=== PATIENT | female | born 1955 | race Asian ===

== ENCOUNTER 2023-03-06 12:24 | Inpatient (IN) | payer BC, MEDICARE ==
[~2023-03-06 12:24] MED LIST: Iopamidol-370 76% 500 ML MDV (1 ML CHARGE) ONE
[2023-03-06 15:11] LABS: #Monocytes 1.1 thou/uL (0.11-0.59); %Basophils 0.2 % (0.0-1.0); %Eosinophils 0.1 % (0.0-10.0); %Lymphocytes 5.5 % (21.0-51.0); %Monocytes 6.4 % (0.0-10.0); %Neutrophils 86.1 % (42.0-75.0); Hematocrit 39.4 % (36.0-47.0); Hemoglobin 13.8 g/dL (12.0-16.0); Mean Corpuscular Hemoglobin 32.4 pg (27.0-31.0); Mean Corpuscular Volume 92.5 fl (78.0-98.0); Mean Platelet Volume 9.4 fL (7.4-10.4); Platelet Count 222 10x3/uL (130-400); RBC Distribution Width 15.7 % (11.5-14.5); Red Blood Cell (RBC) Count 4.26 mill/uL (4.20-5.40); White Blood Cell (WBC) Count 17.4 10x3/uL (4.8-10.8)
[2023-03-06 15:19] LABS: Actual Bicarbonate (HCO3v) 20.3 mEq/L (22-28); Analyzer IN Cardio ER; Base Excess -1.9 mEq/L (-2.0 to +3.0); Calcium, Ionized (venous) 1.04 mmol/L (1.16-1.32); Chloride (VBG) 87 mmol/L (98-106); Hematocrit-VBG 49 % (36.0-47.0); Hemoglobin (Hb) 16.8 g/dL (11.7-16.1); pH (venous) 7.463 (7.32-7.43)
[2023-03-06 15:39] LABS: ALT (SGPT) 319 U/L (8-55); AST (SGOT) 158 U/L (5-34); Albumin 3.5 g/dL (3.4-4.8); Alkaline Phosphatase 186 U/L (40-110); Anion Gap 15 mmol/L (10-20); BUN (Urea Nitrogen) 41 mg/dL (9.8-20.1); Bilirubin, Total 1.7 mg/dL (0.2-1.2); Calc. Creatinine Clearance 0 mL/min (70-130); Calcium 8.6 mg/dL (7.8-10.44); Carbon Dioxide 17 mmol/L (23-31); Chloride 88 mmol/L (98-107); Estimated GFR 84; Globulin 3.6 g/dL (2.4-3.5); Glucose 122 mg/dL (80-115); Lipase 28 U/L (8-78); Magnesium 2.5 mg/dL (1.6-2.6); Protein, Total 7.1 g/dL (5.8-8.1)
[2023-03-06 15:41] LABS: Troponin I Less than 0.010 ng/mL (< 0.028)
[2023-03-06 15:46] LABS: Potassium 6.4 mmol/L (3.5-5.1); Sodium 114 mmol/L (136-145)
[2023-03-06 16:34] LABS: SARS-CoV-2 NAA Rapid Test Not Detected (NotDetected)
[2023-03-06] MEDS ORDERED: Dextrose 10% in Water 250 ML ONE (16:43)
[2023-03-06] MEDS ORDERED: CALCIUM GLUC 1 GM (50 ML) BAG ONE (16:43)
[2023-03-06] MEDS ORDERED: Insulin Regular 300 UNITS/3 ML VIAL ONE (16:44)
[2023-03-06] MEDS ORDERED: EPINEPHrine 1 MG/ML VIAL ONE (18:31)
[2023-03-06] MEDS ORDERED: Bupivacaine PF 0.5% 30 ML VIAL ONE (18:32)
[2023-03-06] MEDS ORDERED: Etomidate 40 MG (20 mL) VIAL ONE (18:50)
[2023-03-06] MEDS ORDERED: CEFAZOLIN 1 GM VIAL ONE (18:51)
[2023-03-06] MEDS ORDERED: Lidocaine 2% PF 5 ML VIAL ONE (18:51)
[2023-03-06] MEDS ORDERED: fentaNYL 50 mcg/mL 1 mL Vial ONE (18:51)
[2023-03-06] MEDS ORDERED: Ondansetron PF 4 MG/2 ML Vial ONE ×2 (19:00→19:17)
[2023-03-06] MEDS ORDERED: Rocuronium Bromide 10 MG/ML (10ML VIAL) ONE (19:00)
[2023-03-06] MEDS ORDERED: Dexamethasone 4 mg/ml Vial ONE (19:17)
[2023-03-06] MEDS ORDERED: PHENYLEPHRINE-NS 100 MCG/ML 10 ML SYRINGE ONE (19:17)
[2023-03-06] MEDS ORDERED: SUGAMMADEX SODIUM 200 MG/2 ML VIAL ONE (19:19)
[2023-03-06] MEDS ORDERED: Glycopyrrolate 0.2 MG/ML 5 ML SYRINGE ONE (19:19)
[2023-03-06] MEDS ORDERED: NEOSTIGMINE 3 MG/3 ML SYR 3 MG/3 ML SYRINGE ONE (19:19)
[2023-03-06] MEDS ORDERED: Promethazine HCl 25 MG/ML VIAL IM PRN (20:11)
[2023-03-06] MEDS ORDERED: Guaifenesin DM 100-10/5 ML UDCUP PO PRN (20:11)
[2023-03-06] MEDS ORDERED: Morphine 2 MG/ML VIAL SLOW IVP PRN (20:11)
[2023-03-06] MEDS ORDERED: Ipratropium/Albuterol 3 ML NEB NEB PRN (20:11)
[2023-03-06] MEDS ORDERED: Ondansetron PF 4 MG/2 ML Vial IVP PRN (20:11)
[2023-03-06] MEDS ORDERED: Mag-Al 1200 mg/1200 mg/30 ML UDCUP PO PRN (20:11)
[2023-03-06 20:24] LABS: RBC Count-Automated (BF) Greater than 890000 /cu.mm; WBC/Nucleated-Auto (BF) 690 /cu.mm
[2023-03-06 20:28] LABS: BF Color Red; Body Fluid Source Pericardial Fluid; Clarity Cloudy/Turbid (Clear); Fluid, Protein 6.5 g/dL (Not Available); Tube # EDTA
[2023-03-06] MEDS: Sodium Chloride 0.9% 1,000 ML IV SCH (20:31)
[2023-03-06 20:36] LABS: BF Segmented Neutrophils 70 %; Cell Count Non Hematic 5 %; Lymphocytes 25 %
[2023-03-06] MEDS: Cefepime 2 GM in Sodium Chloride 0.9% 100 ML IVPB SCH (21:02)
[2023-03-06] MEDS: Vancomycin (BATCH) 1.25 GM in Premix 1 BAG IVPB SCH (22:07)
[2023-03-06] MEDS: fentaNYL 50 mcg/mL 1 mL Vial SLOW IVP PRN (22:08)
[2023-03-06 22:11] LABS: ALT (SGPT) 259 U/L (8-55); AST (SGOT) 139 U/L (5-34); Alkaline Phosphatase 153 U/L (40-110); Anion Gap 13 mmol/L (10-20); BUN (Urea Nitrogen) 35 mg/dL (9.8-20.1); Bilirubin, Total 1.9 mg/dL (0.2-1.2); Calc. Creatinine Clearance 66 mL/min (70-130); Calcium 7.7 mg/dL (7.8-10.44); Carbon Dioxide 17 mmol/L (23-31); Chloride 91 mmol/L (98-107); Estimated GFR 86; Glucose 135 mg/dL (80-115); Magnesium 2.2 mg/dL (1.6-2.6); Potassium 5.8 mmol/L (3.5-5.1)
[2023-03-06 22:14] LABS: Critical Call Chemistry NUR.DLH2@2214; Sodium 115 mmol/L (136-145)
[2023-03-06 23:39] LABS: #Neutrophils 17.2 thou/uL (1.40-6.50); %Basophils 0.1 % (0.0-1.0); %Lymphocytes 2.6 % (21.0-51.0); %Monocytes 5.4 % (0.0-10.0); %Neutrophils 89.8 % (42.0-75.0); Hematocrit 38.5 % (36.0-47.0); Hemoglobin 13.1 g/dL (12.0-16.0); Mean Corpuscular Hemoglobin 33.2 pg (27.0-31.0); Mean Platelet Volume 9.7 fL (7.4-10.4); Platelet Count 201 10x3/uL (130-400); RBC Distribution Width 15.5 % (11.5-14.5); Red Blood Cell (RBC) Count 3.95 mill/uL (4.20-5.40); White Blood Cell (WBC) Count 19.2 10x3/uL (4.8-10.8)
[2023-03-06 23:43] LABS: Mean Corpuscular Volume 97.5 fl (78.0-98.0)
[2023-03-06 23:57] LABS: Lactic Acid 2.6 mmol/L (0.5-2.2)
[2023-03-07] MEDS: Sodium Chloride 3% 100 ML IVPB SCH (00:23)
[2023-03-07] MEDS: Sodium Bicarb 50 mEq/50 ML VIAL IVP SCH ×3 (00:23→23:37)
[2023-03-07 00:34] LABS: Phosphorus 5.1 mg/dL (2.3-4.7)
[2023-03-07 00:37] LABS: Uric Acid 5.9 mg/dL (2.6-6.0)
[2023-03-07] MEDS: Famotidine 20 MG TAB PO SCH (00:40)
[2023-03-07] MEDS: Acetaminophen 325 MG TAB PO SCH (00:40)
[2023-03-07] MEDS: LOKELMA 10 GM PACKET PO SCH ×4 (00:41→18:48)
[2023-03-07] MEDS: Sodium Chloride 3% 500 ML IVPB SCH (00:42)
[2023-03-07] MEDS: Adenosine 6 mg (2 mL) VIAL IVP SCH ×2 (04:01→04:41)
[2023-03-07 04:09] LABS: #Eosinphils 0.1 thou/uL (0.0-0.7); #Monocytes 1.4 thou/uL (0.11-0.59); #Neutrophils 19.1 thou/uL (1.40-6.50); %Basophils 0.2 % (0.0-1.0); %Eosinophils 0.2 % (0.0-10.0); %Lymphocytes 2.8 % (21.0-51.0); %Monocytes 6.4 % (0.0-10.0); %Neutrophils 88.9 % (42.0-75.0); Hematocrit 36.9 % (36.0-47.0); Mean Corpuscular HGB CONC 35.2 g/dL (32.0-36.0); Mean Platelet Volume 8.7 fL (7.4-10.4); Platelet Count 162 10x3/uL (130-400); RBC Distribution Width 15.3 % (11.5-14.5); Red Blood Cell (RBC) Count 3.94 mill/uL (4.20-5.40); White Blood Cell (WBC) Count 21.4 10x3/uL (4.8-10.8)
[2023-03-07 04:15] LABS: Mean Corpuscular Volume 93.7 fl (78.0-98.0)
[2023-03-07 04:22] LABS: ALT (SGPT) 249 U/L (8-55); AST (SGOT) 133 U/L (5-34); Alkaline Phosphatase 140 U/L (40-110); Anion Gap 14 mmol/L (10-20); BUN (Urea Nitrogen) 33 mg/dL (9.8-20.1); Calc. Creatinine Clearance 66 mL/min (70-130); Calcium 7.8 mg/dL (7.8-10.44); Carbon Dioxide 22 mmol/L (23-31); Chloride 93 mmol/L (98-107); Estimated GFR 86; Globulin 2.7 g/dL (2.4-3.5); Glucose 99 mg/dL (80-115); Potassium 5.7 mmol/L (3.5-5.1); Protein, Total 5.7 g/dL (5.8-8.1); Sodium 123 mmol/L (136-145)
[2023-03-07] MEDS ORDERED: LOKELMA 10 GM PACKET PO SCH (04:45)
[2023-03-07] MEDS ORDERED: Amiodarone 150 MG, Admixture Fee 1 EACH in Dextrose 5% in Water 100 ML IVPB SCH (05:30)
[2023-03-07] MEDS: Amiodarone 150 MG/3 ML VIAL IVP SCH (05:35)
[2023-03-07] MEDS: Magnesium 5 GM/10 ML VIAL IV SCH (05:37)
[2023-03-07 06:06] LABS: Magnesium 2.1 mg/dL (1.6-2.6)
[2023-03-07 06:12] LABS: Troponin I 0.139 ng/mL (< 0.028)
[2023-03-07] MEDS: Adenosine 6 mg (2 mL) VIAL ONE ×2 (06:13)
[2023-03-07] MEDS: Dextrose 50% Abboject 50 ML SYRINGE SLOW IVP PRN (06:35)
[2023-03-07] MEDS: Insulin Regular 300 UNITS/3 ML VIAL IVP SCH ×2 (06:35→23:41)
[2023-03-07 07:09] LABS: Creatinine, Urine Less than 20.00 mg/dL (47-110); Sodium, Urine 32 mmol/L (Not Available)
[2023-03-07] MEDS: Magnesium 2 GM/50 ML(in water) 2 GM in Premix 1 BAG IVPB SCH (07:30)
[2023-03-07] MEDS: Amiodarone 450 MG in Dextrose 5% in Water 250 ML IVPB SCH (07:37)
[2023-03-07] MEDS: Calcium Gluc 4.6 MEQ/10 ML (100 MG/ML) SLOW IVP SCH (07:38)
[2023-03-07] MEDS: Vancomycin HCl 750 MG in Sodium Chloride 0.9% 250 ML 250 ML IVPB SCH (08:23)
[2023-03-07] MEDS ORDERED: Enoxaparin 40 MG (0.4 mL) SYRINGE SC SCH (09:00)
[2023-03-07] MEDS: Albuterol 2.5 MG (3 mL) NEB ONE (10:06)
[2023-03-07 11:28] LABS: Anion Gap 13 mmol/L (10-20); BUN (Urea Nitrogen) 31 mg/dL (9.8-20.1); Calc. Creatinine Clearance 70 mL/min (70-130); Calcium 7.7 mg/dL (7.8-10.44); Carbon Dioxide 17 mmol/L (23-31); Chloride 97 mmol/L (98-107); Estimated GFR 90; Glucose 108 mg/dL (80-115); Potassium 5.6 mmol/L (3.5-5.1); Sodium 121 mmol/L (136-145)
[2023-03-07 11:45] LABS: Troponin I 0.136 ng/mL (< 0.028)
[2023-03-07] MEDS: Albumin 25% 25 GM (100 mL) BOT IVPB SCH (12:19)
[2023-03-07] MEDS ORDERED: Sodium Chloride 0.9% 250 ML IV SCH (13:00)
[2023-03-07 13:57] LABS: Potassium (VBG) 6.03 mmol/L (3.70-5.30); Sodium 117 mmol/L (133-146)
[2023-03-07] MEDS: Sodium Chloride 0.9% 1,000 ML IV SCH (14:30)
[2023-03-07 18:23] LABS: Anion Gap 20 mmol/L (10-20); BUN (Urea Nitrogen) 35 mg/dL (9.8-20.1); Calc. Creatinine Clearance 60 mL/min (70-130); Carbon Dioxide 14 mmol/L (23-31); Chloride 97 mmol/L (98-107); Estimated GFR 75; Glucose 68 mg/dL (80-115); Potassium 5.9 mmol/L (3.5-5.1); Sodium 125 mmol/L (136-145)
[2023-03-07 20:58] LABS: INR-International Normal Ratio 2.5; Prothrombin Time 28.1 sec (12.0-14.7)
[2023-03-07 20:59] LABS: PTT 25.2 sec (22.9-36.1)
[2023-03-07 21:23] LABS: ALT (SGPT) 757 U/L (8-55); AST (SGOT) 1037 U/L (5-34); Albumin 3.8 g/dL (3.4-4.8); Alkaline Phosphatase 178 U/L (40-110); Anion Gap 22 mmol/L (10-20); BUN (Urea Nitrogen) 36 mg/dL (9.8-20.1); Bilirubin, Total 5.4 mg/dL (0.2-1.2); Calc. Creatinine Clearance 45 mL/min (70-130); Calcium 8.2 mg/dL (7.8-10.44); Carbon Dioxide 14 mmol/L (23-31); Chloride 96 mmol/L (98-107); Critical Call Chem-Lactate NUR.MDS1@2122; Critical Call Chemistry NUR.MDS1@2123; Estimated GFR 53; Globulin 2.8 g/dL (2.4-3.5); Glucose 64 mg/dL (80-115); Lactic Acid 7.2 mmol/L (0.5-2.2); Potassium 6.1 mmol/L (3.5-5.1); Protein, Total 6.6 g/dL (5.8-8.1); Sodium 126 mmol/L (136-145)
[2023-03-07] MEDS ORDERED: NOREPINEPHRINE 8 MG/250 ML-D5W 250 ML IVPB SCH (22:00)
[2023-03-07] MEDS: Sodium Bicarbonate 150 MEQ in Dextrose 5% in Water 1,000 ML IV SCH (22:00)
[2023-03-07] MEDS: Dextrose 50% Abboject 50 ML SYRINGE SLOW IVP SCH (23:41)
[2023-03-08 01:51] LABS: Hep C Index 0.09 S/CO (0-0.79)
[2023-03-08 02:50] LABS: HBSAB Concentration Less than 8.00 mIU/mL; Hep B Core Total Ab Reactive (NonReactive); Hep B Surf AB Non-Reactive (NonReactive); Hep C IgG Ab Non-Reactive S/CO (NonReactive)
[2023-03-08 02:57] LABS: HBSAg Index 48.19 S/CO (0-0.99)
[2023-03-08 02:58] LABS: Hep B Surf Ag Reflx Confirmation S/CO (NonReactive)
[2023-03-08 02:59] LABS: Hep B Core Total Index 7.51 S/CO (0-0.79)
[2023-03-08] MEDS: Polyethylene Glycol 3350 17 GM Packet PO SCH ×2 (03:34→09:16)
[2023-03-08] MEDS: Cefepime 1 GM in Sodium Chloride 0.9% 100 ML IVPB SCH ×2 (04:05→07:51)
[2023-03-08] MEDS: Vancomycin HCl 750 MG in Sodium Chloride 0.9% 250 ML 250 ML IVPB SCH (05:06)
[2023-03-08 06:00] LABS: #Monocytes 1.1 thou/uL (0.11-0.59); #Neutrophils 19.4 thou/uL (1.40-6.50); %Basophils 0.1 % (0.0-1.0); %Lymphocytes 2.5 % (21.0-51.0); %Monocytes 4.9 % (0.0-10.0); %Neutrophils 90.7 % (42.0-75.0); Hematocrit 32.4 % (36.0-47.0); Hemoglobin 11.1 g/dL (12.0-16.0); Mean Corpuscular HGB CONC 34.3 g/dL (32.0-36.0); Mean Corpuscular Hemoglobin 33.5 pg (27.0-31.0); Mean Corpuscular Volume 97.9 fl (78.0-98.0); Mean Platelet Volume 8.9 fL (7.4-10.4); Platelet Count 95 10x3/uL (130-400); Red Blood Cell (RBC) Count 3.31 mill/uL (4.20-5.40); White Blood Cell (WBC) Count 21.4 10x3/uL (4.8-10.8)
[2023-03-08 06:15] LABS: Lactic Acid 2.6 mmol/L (0.5-2.2)
[2023-03-08 06:24] LABS: ALT (SGPT) 1603 U/L (8-55); AST (SGOT) 3210 U/L (5-34); Albumin 2.8 g/dL (3.4-4.8); Alkaline Phosphatase 142 U/L (40-110); Anion Gap 12 mmol/L (10-20); BUN (Urea Nitrogen) 25 mg/dL (9.8-20.1); Bilirubin, Total 3.4 mg/dL (0.2-1.2); Calc. Creatinine Clearance 57 mL/min (70-130); Calcium 7.1 mg/dL (7.8-10.44); Carbon Dioxide 31 mmol/L (23-31); Chloride 90 mmol/L (98-107); Estimated GFR 69; Globulin 2.1 g/dL (2.4-3.5); Glucose 172 mg/dL (80-115); Magnesium 2.2 mg/dL (1.6-2.6); Potassium 4.3 mmol/L (3.5-5.1); Protein, Total 4.9 g/dL (5.8-8.1); Sodium 129 mmol/L (136-145)
[2023-03-08 08:10] LABS: Prothrombin Time 32.1 sec (12.0-14.7)
[2023-03-08 08:11] LABS: PTT 41.2 sec (22.9-36.1)
[2023-03-08] MEDS: dilTIAZem 125 MG in Sodium Chloride 0.9% 100 ML IVPB SCH (09:16)
[2023-03-08 10:21] LABS: HBCM Index 0.06 S/CO (0-0.79); Hepatitis B Core IgM Abs Non-Reactive S/CO (NonReactive)
[2023-03-08] MEDS: fentaNYL 50 mcg/mL 1 mL Vial SLOW IVP PRN (14:58)
[2023-03-09 04:47] LABS: #Monocytes 0.8 thou/uL (0.11-0.59); #Neutrophils 19.5 thou/uL (1.40-6.50); %Basophils 0.1 % (0.0-1.0); %Lymphocytes 3.5 % (21.0-51.0); %Monocytes 3.5 % (0.0-10.0); %Neutrophils 91.5 % (42.0-75.0); Hematocrit 34.7 % (36.0-47.0); Hemoglobin 11.5 g/dL (12.0-16.0); Mean Corpuscular HGB CONC 33.1 g/dL (32.0-36.0); Mean Corpuscular Hemoglobin 32.4 pg (27.0-31.0); Mean Corpuscular Volume 97.7 fl (78.0-98.0); Mean Platelet Volume 9.4 fL (7.4-10.4); RBC Distribution Width 16.1 % (11.5-14.5); Red Blood Cell (RBC) Count 3.55 mill/uL (4.20-5.40); White Blood Cell (WBC) Count 21.3 10x3/uL (4.8-10.8)
[2023-03-09 05:07] LABS: Platelet Count 81 10x3/uL (130-400)
[2023-03-09 05:38] LABS: PTT 37.3 sec (22.9-36.1)
[2023-03-09 05:41] LABS: ALT (SGPT) 994 U/L (8-55); AST (SGOT) 843 U/L (5-34); Albumin 2.8 g/dL (3.4-4.8); Alkaline Phosphatase 141 U/L (40-110); Anion Gap 12 mmol/L (10-20); BUN (Urea Nitrogen) 38 mg/dL (9.8-20.1); Bilirubin, Total 2.6 mg/dL (0.2-1.2); Calc. Creatinine Clearance 50 mL/min (70-130); Calcium 7.4 mg/dL (7.8-10.44); Carbon Dioxide 31 mmol/L (23-31); Chloride 91 mmol/L (98-107); Estimated GFR 60; Fibrinogen 144 mg/dL (253-463); Globulin 2.2 g/dL (2.4-3.5); Glucose 134 mg/dL (80-115); Potassium 3.9 mmol/L (3.5-5.1); Sodium 130 mmol/L (136-145)
[2023-03-09] MEDS: Morphine 2 MG/ML VIAL SLOW IVP SCH (06:41)
[2023-03-09 06:43] LABS: D-Dimer Test Greater than 20.00 *mcg/mL (0.27-0.43)
[2023-03-09 06:46] LABS: Platelet Count 81 10x3/uL (130-400)
[2023-03-09] MEDS: Famotidine 20 MG TAB PO SCH (10:51)
[2023-03-09] MEDS ORDERED: Vancomycin HCl 750 MG in Sodium Chloride 0.9% 250 ML 250 ML IVPB SCH (17:15)
[2023-03-09 17:36] LABS: Hep B Surface AG-Rflx Sendout Confirm. indicated (Negative)
[2023-03-09 17:47] LABS: Vancomycin, Trough 20.3 ug/mL
[2023-03-09] MEDS: Vancomycin HCl 500 MG in Sodium Chloride 0.9% 100 ML IVPB SCH (20:36)
[2023-03-10 08:31] LABS: ALT (SGPT) 614 U/L (8-55); AST (SGOT) 235 U/L (5-34); Albumin 2.5 g/dL (3.4-4.8); Alkaline Phosphatase 142 U/L (40-110); Anion Gap 14 mmol/L (10-20); BUN (Urea Nitrogen) 36 mg/dL (9.8-20.1); Bilirubin, Total 1.8 mg/dL (0.2-1.2); Calc. Creatinine Clearance 62 mL/min (70-130); Calcium 7.2 mg/dL (7.8-10.44); Carbon Dioxide 24 mmol/L (23-31); Chloride 96 mmol/L (98-107); Estimated GFR 74; Globulin 2.8 g/dL (2.4-3.5); Glucose 93 mg/dL (80-115); Potassium 5.8 mmol/L (3.5-5.1); Protein, Total 5.3 g/dL (5.8-8.1); Sodium 128 mmol/L (136-145)
[2023-03-10 09:14] LABS: #Eosinphils 0.1 thou/uL (0.0-0.7); #Monocytes 0.8 thou/uL (0.11-0.59); #Neutrophils 17.1 thou/uL (1.40-6.50); %Basophils 0.2 % (0.0-1.0); %Eosinophils 0.4 % (0.0-10.0); %Lymphocytes 3.3 % (21.0-51.0); %Monocytes 4.5 % (0.0-10.0); %Neutrophils 90.9 % (42.0-75.0); Hematocrit 38.9 % (36.0-47.0); Hemoglobin 12.8 g/dL (12.0-16.0); Mean Corpuscular HGB CONC 32.9 g/dL (32.0-36.0); Mean Corpuscular Hemoglobin 32.7 pg (27.0-31.0); Mean Corpuscular Volume 99.2 fl (78.0-98.0); Mean Platelet Volume 9.4 fL (7.4-10.4); RBC Distribution Width 16.6 % (11.5-14.5); Red Blood Cell (RBC) Count 3.92 mill/uL (4.20-5.40); White Blood Cell (WBC) Count 18.8 10x3/uL (4.8-10.8)
[2023-03-10 09:18] LABS: Platelet Count 76 10x3/uL (130-400)
[2023-03-10] MEDS: dilTIAZem 30 MG TAB PO SCH ×3 (12:23→12:26)
[2023-03-10] MEDS: FLU VACC QS2023(65UP)/MF59C/PF 60 MCG/0.5 ML SYRINGE IM ONE (12:25)
[2023-03-10] MEDS: Activase 2 MG VIAL CATH SCH (23:38)
[2023-03-10] MEDS: Sterile Water 10 ML VIAL IVP SCH (23:42)
[2023-03-11 08:24] LABS: #Monocytes 0.9 thou/uL (0.11-0.59); #Neutrophils 17.5 thou/uL (1.40-6.50); %Basophils 0.2 % (0.0-1.0); %Eosinophils 0.1 % (0.0-10.0); %Lymphocytes 2.7 % (21.0-51.0); %Monocytes 4.7 % (0.0-10.0); %Neutrophils 91.6 % (42.0-75.0); Hematocrit 42.7 % (36.0-47.0); Hemoglobin 13.7 g/dL (12.0-16.0); Mean Corpuscular HGB CONC 32.1 g/dL (32.0-36.0); Mean Corpuscular Hemoglobin 32.9 pg (27.0-31.0); Mean Platelet Volume 12.1 fL (7.4-10.4); RBC Distribution Width 17.1 % (11.5-14.5); Red Blood Cell (RBC) Count 4.16 mill/uL (4.20-5.40); White Blood Cell (WBC) Count 19.1 10x3/uL (4.8-10.8)
[2023-03-11 08:26] LABS: Platelet Count 61 10x3/uL (130-400)
[2023-03-11 08:27] LABS: Mean Corpuscular Volume 102.6 fl (78.0-98.0)
[2023-03-11] MEDS: [UNRECOGNIZED DRUG - OTHER] PO SCH (08:33)
[2023-03-11 09:25] LABS: ALT (SGPT) 438 U/L (8-55); AST (SGOT) 106 U/L (5-34); Albumin 2.5 g/dL (3.4-4.8); Alkaline Phosphatase 148 U/L (40-110); Anion Gap 15 mmol/L (10-20); BUN (Urea Nitrogen) 15 mg/dL (9.8-20.1); Bilirubin, Total 1.9 mg/dL (0.2-1.2); Calc. Creatinine Clearance 81 mL/min (70-130); Calcium 7.5 mg/dL (7.8-10.44); Carbon Dioxide 22 mmol/L (23-31); Chloride 101 mmol/L (98-107); Estimated GFR 97; Globulin 3.2 g/dL (2.4-3.5); Glucose 84 mg/dL (80-115); Potassium 4.8 mmol/L (3.5-5.1); Protein, Total 5.7 g/dL (5.8-8.1); Sodium 133 mmol/L (136-145)
[2023-03-12 05:17] LABS: #Monocytes 1.1 thou/uL (0.11-0.59); #Neutrophils 15.4 thou/uL (1.40-6.50); %Basophils 0.1 % (0.0-1.0); %Eosinophils 0.2 % (0.0-10.0); %Lymphocytes 3.8 % (21.0-51.0); %Monocytes 6.4 % (0.0-10.0); %Neutrophils 88.8 % (42.0-75.0); Hematocrit 39.9 % (36.0-47.0); Hemoglobin 13.1 g/dL (12.0-16.0); Mean Corpuscular HGB CONC 32.8 g/dL (32.0-36.0); Mean Corpuscular Hemoglobin 32.7 pg (27.0-31.0); RBC Distribution Width 16.6 % (11.5-14.5); Red Blood Cell (RBC) Count 4.01 mill/uL (4.20-5.40); White Blood Cell (WBC) Count 17.3 10x3/uL (4.8-10.8)
[2023-03-12 05:19] LABS: Platelet Count 68 10x3/uL (130-400)
[2023-03-12 05:20] LABS: Mean Corpuscular Volume 99.5 fl (78.0-98.0)
[2023-03-12 06:32] LABS: ALT (SGPT) 285 U/L (8-55); AST (SGOT) 58 U/L (5-34); Albumin 2.5 g/dL (3.4-4.8); Alkaline Phosphatase 135 U/L (40-110); Anion Gap 11 mmol/L (10-20); BUN (Urea Nitrogen) 19 mg/dL (9.8-20.1); Bilirubin, Total 2.1 mg/dL (0.2-1.2); Calc. Creatinine Clearance 78 mL/min (70-130); Carbon Dioxide 26 mmol/L (23-31); Chloride 100 mmol/L (98-107); Estimated GFR 96; Globulin 2.8 g/dL (2.4-3.5); Glucose 81 mg/dL (80-115); Potassium 3.9 mmol/L (3.5-5.1); Protein, Total 5.3 g/dL (5.8-8.1); Sodium 133 mmol/L (136-145)
[2023-03-12] MEDS: dilTIAZem CD 120 MG CAP PO SCH (10:55)
[2023-03-13 05:51] LABS: ALT (SGPT) 202 U/L (8-55); AST (SGOT) 42 U/L (5-34); Albumin 2.4 g/dL (3.4-4.8); Alkaline Phosphatase 120 U/L (40-110); Anion Gap 12 mmol/L (10-20); BUN (Urea Nitrogen) 20 mg/dL (9.8-20.1); Bilirubin, Total 1.9 mg/dL (0.2-1.2); Calc. Creatinine Clearance 77 mL/min (70-130); Carbon Dioxide 31 mmol/L (23-31); Chloride 98 mmol/L (98-107); Estimated GFR 96; Globulin 2.7 g/dL (2.4-3.5); Glucose 88 mg/dL (80-115); Potassium 4.7 mmol/L (3.5-5.1); Protein, Total 5.1 g/dL (5.8-8.1); Sodium 136 mmol/L (136-145)
[2023-03-13 06:58] LABS: Hematocrit 44.2 % (36.0-47.0); Hemoglobin 14.8 g/dL (12.0-16.0); Mean Corpuscular HGB CONC 33.5 g/dL (32.0-36.0); Mean Corpuscular Hemoglobin 32.8 pg (27.0-31.0); Mean Platelet Volume 11.6 fL (7.4-10.4); RBC Distribution Width 16.8 % (11.5-14.5); Red Blood Cell (RBC) Count 4.51 mill/uL (4.20-5.40); White Blood Cell (WBC) Count 17.3 10x3/uL (4.8-10.8)
[2023-03-13 07:01] LABS: Delete Auto Diff?? YES; Manual Diff?? YES; Platelet Count 68 10x3/uL (130-400)
[2023-03-13 08:14] LABS: Band 2 % (5-11); CellaVision Operator ID LAB.GE; Monocytes 3 % (0-10); Neutrophil 93 % (42-75); Platelet Adequacy Comment Platelets Decreased; Polychromasia SLIGHT = 2-3 cells HPF (0-2); Reactive Lymphocytes 2 % (0-10); Total Cell Count 97
[2023-03-13] MEDS ORDERED: dilTIAZem CD 120 MG CAP PO SCH (09:00)
[2023-03-13] MEDS: dilTIAZem CD 240 MG CAP PO SCH (09:45)
[2023-03-13] MEDS: Famotidine 20 MG TAB PO SCH (09:45)
[2023-03-13] MEDS: hydrALAZINE 20 MG/ML VIAL SLOW IVP PRN (10:08)
[2023-03-13] MEDS: fentaNYL 50 mcg/mL 1 mL Vial SLOW IVP PRN (12:38)
[2023-03-13] MEDS: Morphine 4 MG/ML VIAL SLOW IVP SCH (12:42)
[2023-03-13] MEDS ORDERED: Iopamidol-370 76% 500 ML MDV (1 ML CHARGE) ONE (12:59)
[2023-03-13 13:30] LABS: Troponin I 0.012 ng/mL (< 0.028)
[2023-03-13] MEDS: Enoxaparin 60 MG (0.6 mL) SYRINGE SC SCH (16:33)
[2023-03-14 01:57] LABS: #Monocytes 1.1 thou/uL (0.11-0.59); #Neutrophils 16.1 thou/uL (1.40-6.50); %Basophils 0.1 % (0.0-1.0); %Eosinophils 0.1 % (0.0-10.0); %Lymphocytes 3.8 % (21.0-51.0); %Monocytes 5.8 % (0.0-10.0); %Neutrophils 89.7 % (42.0-75.0); Hematocrit 42.2 % (36.0-47.0); Hemoglobin 14.4 g/dL (12.0-16.0); Mean Corpuscular HGB CONC 34.1 g/dL (32.0-36.0); Mean Corpuscular Hemoglobin 32.9 pg (27.0-31.0); Mean Corpuscular Volume 96.3 fl (78.0-98.0); Mean Platelet Volume 9.9 fL (7.4-10.4); RBC Distribution Width 16.8 % (11.5-14.5); Red Blood Cell (RBC) Count 4.38 mill/uL (4.20-5.40)
[2023-03-14 01:59] LABS: Platelet Count 88 10x3/uL (130-400)
[2023-03-14 02:17] LABS: Lactic Acid 1.2 mmol/L (0.5-2.2)
[2023-03-14] MEDS: Enoxaparin 60 MG (0.6 mL) SYRINGE SC SCH (03:10)
[2023-03-14 03:44] LABS: ALT (SGPT) 157 U/L (8-55); AST (SGOT) 42 U/L (5-34); Albumin 2.5 g/dL (3.4-4.8); Alkaline Phosphatase 114 U/L (40-110); Anion Gap 15 mmol/L (10-20); BUN (Urea Nitrogen) 35 mg/dL (9.8-20.1); Bilirubin, Total 1.7 mg/dL (0.2-1.2); Calc. Creatinine Clearance 74 mL/min (70-130); Calcium 8.6 mg/dL (7.8-10.44); Carbon Dioxide 29 mmol/L (23-31); Chloride 97 mmol/L (98-107); Estimated GFR 92; Globulin 3.1 g/dL (2.4-3.5); Glucose 90 mg/dL (80-115); Potassium 3.8 mmol/L (3.5-5.1); Protein, Total 5.6 g/dL (5.8-8.1); Sodium 137 mmol/L (136-145)
[2023-03-14] MEDS ORDERED: Labetalol HCl 100 MG/20 ML VIAL SLOW IVP PRN ×3 (12:21→13:19)
[2023-03-14] MEDS: Cefepime 2 GM in Sodium Chloride 0.9% 100 ML IVPB SCH (12:35)
[2023-03-14] MEDS: Lisinopril 10 MG TAB PO SCH (18:19)
[2023-03-14] MEDS: Polyethylene Glycol 3350 17 GM Packet PO SCH (21:11)
[2023-03-15 06:12] LABS: ALT (SGPT) 105 U/L (8-55); AST (SGOT) 43 U/L (5-34); Albumin 2.3 g/dL (3.4-4.8); Alkaline Phosphatase 94 U/L (40-110); Anion Gap 12 mmol/L (10-20); BUN (Urea Nitrogen) 40 mg/dL (9.8-20.1); Bilirubin, Total 1.3 mg/dL (0.2-1.2); Calc. Creatinine Clearance 77 mL/min (70-130); Calcium 8.2 mg/dL (7.8-10.44); Carbon Dioxide 28 mmol/L (23-31); Chloride 99 mmol/L (98-107); Estimated GFR 95; Globulin 2.9 g/dL (2.4-3.5); Glucose 93 mg/dL (80-115); Protein, Total 5.2 g/dL (5.8-8.1); Sodium 135 mmol/L (136-145)
[2023-03-15 07:25] LABS: #Eosinphils 0.1 thou/uL (0.0-0.7); #Neutrophils 15.4 thou/uL (1.40-6.50); %Basophils 0.1 % (0.0-1.0); %Eosinophils 0.3 % (0.0-10.0); %Lymphocytes 3.6 % (21.0-51.0); %Monocytes 5.7 % (0.0-10.0); %Neutrophils 89.6 % (42.0-75.0); Hemoglobin 13.8 g/dL (12.0-16.0); Mean Corpuscular HGB CONC 32.9 g/dL (32.0-36.0); Mean Corpuscular Hemoglobin 32.5 pg (27.0-31.0); Mean Corpuscular Volume 99.1 fl (78.0-98.0); Mean Platelet Volume 11.1 fL (7.4-10.4); RBC Distribution Width 16.9 % (11.5-14.5); Red Blood Cell (RBC) Count 4.24 mill/uL (4.20-5.40); White Blood Cell (WBC) Count 17.2 10x3/uL (4.8-10.8)
[2023-03-15 07:26] LABS: Platelet Count 82 10x3/uL (130-400)
[2023-03-15] MEDS: Lisinopril 10 MG TAB PO SCH (09:53)
[2023-03-15] MEDS: Docusate Sodium 100 MG/10 ML UDCUP PO SCH (12:53)
[2023-03-15] MEDS: Vancomycin (BATCH) 1.25 GM in Premix 1 BAG IVPB SCH (15:09)
[2023-03-15] MEDS: SODIUM CHLORIDE FS SCH (16:41)
[2023-03-15] MEDS: DOXYCYCLINE FS SCH (16:41)
[2023-03-15] MEDS: ADMIXTURE FEE FS SCH (16:41)
[2023-03-15] MEDS: Lidocaine 1% (PF) 30 ML VIAL FS SCH (16:42)
[2023-03-15] MEDS: Apixaban 5 MG TAB PO SCH (17:58)
[2023-03-16] MEDS: Vancomycin HCl 750 MG in Sodium Chloride 0.9% 250 ML 250 ML IVPB SCH (05:37)
[2023-03-16 06:41] LABS: ALT (SGPT) 86 U/L (8-55); AST (SGOT) 71 U/L (5-34); Albumin 2.1 g/dL (3.4-4.8); Alkaline Phosphatase 89 U/L (40-110); Anion Gap 13 mmol/L (10-20); BUN (Urea Nitrogen) 45 mg/dL (9.8-20.1); Bilirubin, Total 1.1 mg/dL (0.2-1.2); Calc. Creatinine Clearance 78 mL/min (70-130); Calcium 7.9 mg/dL (7.8-10.44); Carbon Dioxide 21 mmol/L (23-31); Chloride 103 mmol/L (98-107); Estimated GFR 96; Globulin 3.3 g/dL (2.4-3.5); Glucose 99 mg/dL (80-115); Protein, Total 5.4 g/dL (5.8-8.1); Sodium 132 mmol/L (136-145)
[2023-03-16 06:49] LABS: #Monocytes 0.9 thou/uL (0.11-0.59); #Neutrophils 13.7 thou/uL (1.40-6.50); %Basophils 0.1 % (0.0-1.0); %Eosinophils 0.2 % (0.0-10.0); %Lymphocytes 3.2 % (21.0-51.0); %Monocytes 5.8 % (0.0-10.0); %Neutrophils 90.1 % (42.0-75.0); Hematocrit 43.4 % (36.0-47.0); Mean Corpuscular HGB CONC 32.3 g/dL (32.0-36.0); Mean Corpuscular Hemoglobin 32.3 pg (27.0-31.0); Mean Corpuscular Volume 100.2 fl (78.0-98.0); Mean Platelet Volume 9.7 fL (7.4-10.4); Platelet Count 121 10x3/uL (130-400); RBC Distribution Width 16.5 % (11.5-14.5); Red Blood Cell (RBC) Count 4.33 mill/uL (4.20-5.40); White Blood Cell (WBC) Count 15.2 10x3/uL (4.8-10.8)
[2023-03-16] MEDS: Docusate Sodium 100 MG/10 ML UDCUP PO SCH (09:29)
[2023-03-16] MEDS: traMADol HCl 50 MG TAB PO PRN (09:31)
[2023-03-16] MEDS: hydrALAZINE 25 MG TAB PO SCH (09:31)
[2023-03-16] MEDS: Lactulose 20 GM (30 mL) UDCUP PO SCH ×2 (11:20→15:06)
[2023-03-16 17:13] LABS: ALT (SGPT) 92 U/L (8-55); AST (SGOT) 52 U/L (5-34); Albumin 2.7 g/dL (3.4-4.8); Alkaline Phosphatase 96 U/L (40-110); Anion Gap 9 mmol/L (10-20); BUN (Urea Nitrogen) 52 mg/dL (9.8-20.1); Bilirubin, Total 1.3 mg/dL (0.2-1.2); Calc. Creatinine Clearance 67 mL/min (70-130); Calcium 8.9 mg/dL (7.8-10.44); Carbon Dioxide 28 mmol/L (23-31); Chloride 100 mmol/L (98-107); Estimated GFR 80; Globulin 2.9 g/dL (2.4-3.5); Glucose 137 mg/dL (80-115); Potassium 3.8 mmol/L (3.5-5.1); Protein, Total 5.6 g/dL (5.8-8.1); Sodium 133 mmol/L (136-145)
[2023-03-16] MEDS: Furosemide 40 MG (4 mL) VIAL SLOW IVP SCH (18:40)
[2023-03-16] MEDS: Senokot 8.6 MG TAB PO SCH (20:53)
[2023-03-16] MEDS: Polyethylene Glycol 3350 17 GM Packet PO SCH (20:54)
[2023-03-17 06:53] LABS: #Monocytes 0.8 thou/uL (0.11-0.59); #Neutrophils 15.4 thou/uL (1.40-6.50); %Basophils 0.2 % (0.0-1.0); %Eosinophils 0.1 % (0.0-10.0); %Lymphocytes 3.3 % (21.0-51.0); %Monocytes 4.9 % (0.0-10.0); %Neutrophils 90.8 % (42.0-75.0); Hematocrit 40.8 % (36.0-47.0); Hemoglobin 13.4 g/dL (12.0-16.0); Mean Corpuscular HGB CONC 32.8 g/dL (32.0-36.0); Mean Corpuscular Hemoglobin 32.3 pg (27.0-31.0); Mean Corpuscular Volume 98.3 fl (78.0-98.0); Mean Platelet Volume 9.6 fL (7.4-10.4); Platelet Count 149 10x3/uL (130-400); RBC Distribution Width 16.6 % (11.5-14.5); Red Blood Cell (RBC) Count 4.15 mill/uL (4.20-5.40); White Blood Cell (WBC) Count 16.9 10x3/uL (4.8-10.8)
[2023-03-17 07:10] LABS: Vancomycin, Trough 17.7 ug/mL
[2023-03-17 07:21] LABS: AST (SGOT) 55 U/L (5-34); Calcium 8.5 mg/dL (7.8-10.44); Chloride 101 mmol/L (98-107); Potassium 3.7 mmol/L (3.5-5.1); Sodium 131 mmol/L (136-145)
[2023-03-17 07:23] LABS: ALT (SGPT) 88 U/L (8-55); Albumin 2.4 g/dL (3.4-4.8); Alkaline Phosphatase 92 U/L (40-110); Anion Gap 15 mmol/L (10-20); BUN (Urea Nitrogen) 56 mg/dL (9.8-20.1); Calc. Creatinine Clearance 61 mL/min (70-130); Carbon Dioxide 21 mmol/L (23-31); Estimated GFR 72; Globulin 3.1 g/dL (2.4-3.5); Glucose 130 mg/dL (80-115); Protein, Total 5.5 g/dL (5.8-8.1)
[2023-03-17] MEDS ORDERED: Vancomycin HCl 750 MG in Sodium Chloride 0.9% 250 ML 250 ML IVPB SCH (18:00)
[2023-03-17 18:02] LABS: Vancomycin, Trough 13.9 ug/mL
[2023-03-17] MEDS: Vancomycin HCl 750 MG in Sodium Chloride 0.9% 250 ML 250 ML IVPB SCH (18:46)
[2023-03-18] MEDS ORDERED: Senokot 8.6 MG TAB PO PRN (08:12)
[2023-03-18 13:53] LABS: #Monocytes 0.6 thou/uL (0.11-0.59); #Neutrophils 16.3 thou/uL (1.40-6.50); %Basophils 0.2 % (0.0-1.0); %Lymphocytes 2.9 % (21.0-51.0); %Monocytes 3.5 % (0.0-10.0); Hematocrit 40.8 % (36.0-47.0); Hemoglobin 13.6 g/dL (12.0-16.0); Mean Corpuscular HGB CONC 33.3 g/dL (32.0-36.0); Mean Corpuscular Hemoglobin 32.9 pg (27.0-31.0); Mean Corpuscular Volume 98.6 fl (78.0-98.0); Platelet Count 201 10x3/uL (130-400); RBC Distribution Width 16.7 % (11.5-14.5); Red Blood Cell (RBC) Count 4.14 mill/uL (4.20-5.40); White Blood Cell (WBC) Count 17.5 10x3/uL (4.8-10.8)
[2023-03-18 14:18] LABS: ALT (SGPT) 77 U/L (8-55); AST (SGOT) 47 U/L (5-34); Albumin 2.7 g/dL (3.4-4.8); Alkaline Phosphatase 85 U/L (40-110); Anion Gap 15 mmol/L (10-20); BUN (Urea Nitrogen) 64 mg/dL (9.8-20.1); Calc. Creatinine Clearance 53 mL/min (70-130); Carbon Dioxide 22 mmol/L (23-31); Chloride 96 mmol/L (98-107); Estimated GFR 60; Glucose 115 mg/dL (80-115); Potassium 3.8 mmol/L (3.5-5.1); Protein, Total 5.7 g/dL (5.8-8.1); Sodium 129 mmol/L (136-145)
[2023-03-19 06:18] LABS: #Neutrophils 17.6 thou/uL (1.40-6.50); %Basophils 0.2 % (0.0-1.0); %Lymphocytes 2.8 % (21.0-51.0); %Monocytes 5.2 % (0.0-10.0); %Neutrophils 91.1 % (42.0-75.0); Hematocrit 36.6 % (36.0-47.0); Hemoglobin 12.2 g/dL (12.0-16.0); Mean Corpuscular HGB CONC 33.3 g/dL (32.0-36.0); Mean Corpuscular Hemoglobin 32.7 pg (27.0-31.0); Mean Corpuscular Volume 98.1 fl (78.0-98.0); Mean Platelet Volume 9.3 fL (7.4-10.4); Platelet Count 187 10x3/uL (130-400); RBC Distribution Width 16.6 % (11.5-14.5); Red Blood Cell (RBC) Count 3.73 mill/uL (4.20-5.40); White Blood Cell (WBC) Count 19.3 10x3/uL (4.8-10.8)
[2023-03-19 06:37] LABS: ALT (SGPT) 66 U/L (8-55); AST (SGOT) 46 U/L (5-34); Albumin 2.5 g/dL (3.4-4.8); Alkaline Phosphatase 75 U/L (40-110); Anion Gap 12 mmol/L (10-20); BUN (Urea Nitrogen) 69 mg/dL (9.8-20.1); Bilirubin, Total 0.9 mg/dL (0.2-1.2); Calc. Creatinine Clearance 55 mL/min (70-130); Calcium 8.6 mg/dL (7.8-10.44); Carbon Dioxide 21 mmol/L (23-31); Chloride 101 mmol/L (98-107); Estimated GFR 62; Globulin 2.9 g/dL (2.4-3.5); Glucose 97 mg/dL (80-115); Protein, Total 5.4 g/dL (5.8-8.1); Sodium 130 mmol/L (136-145)
[2023-03-19] MEDS: Furosemide 20 MG (2 mL) VIAL SLOW IVP SCH (10:17)
[2023-03-19] MEDS: dilTIAZem CD 180 MG CAP PO SCH (10:17)
[2023-03-19 17:32] LABS: Vancomycin, Trough 29.8 ug/mL
[2023-03-19] MEDS ORDERED: Vancomycin HCl 750 MG in Sodium Chloride 0.9% 250 ML 250 ML IVPB SCH (18:00)
[2023-03-20] MEDS: Morphine 4 MG/ML VIAL SLOW IVP SCH (01:17)
[2023-03-20 05:08] LABS: #Monocytes 0.9 thou/uL (0.11-0.59); #Neutrophils 14.7 thou/uL (1.40-6.50); %Basophils 0.1 % (0.0-1.0); %Eosinophils 0.1 % (0.0-10.0); %Monocytes 5.3 % (0.0-10.0); Hematocrit 35.3 % (36.0-47.0); Hemoglobin 11.5 g/dL (12.0-16.0); Mean Corpuscular HGB CONC 32.6 g/dL (32.0-36.0); Mean Corpuscular Hemoglobin 32.6 pg (27.0-31.0); Mean Platelet Volume 9.2 fL (7.4-10.4); Platelet Count 181 10x3/uL (130-400); RBC Distribution Width 16.8 % (11.5-14.5); Red Blood Cell (RBC) Count 3.53 mill/uL (4.20-5.40); White Blood Cell (WBC) Count 16.3 10x3/uL (4.8-10.8)
[2023-03-20 05:35] LABS: ALT (SGPT) 55 U/L (8-55); AST (SGOT) 46 U/L (5-34); Albumin 2.4 g/dL (3.4-4.8); Alkaline Phosphatase 80 U/L (40-110); Anion Gap 11 mmol/L (10-20); BUN (Urea Nitrogen) 69 mg/dL (9.8-20.1); Bilirubin, Total 0.9 mg/dL (0.2-1.2); Calc. Creatinine Clearance 54 mL/min (70-130); Calcium 8.4 mg/dL (7.8-10.44); Carbon Dioxide 21 mmol/L (23-31); Chloride 102 mmol/L (98-107); Estimated GFR 61; Globulin 2.8 g/dL (2.4-3.5); Glucose 94 mg/dL (80-115); Potassium 3.5 mmol/L (3.5-5.1); Protein, Total 5.2 g/dL (5.8-8.1); Sodium 130 mmol/L (136-145)
[2023-03-21 05:52] LABS: #Monocytes 0.7 thou/uL (0.11-0.59); #Neutrophils 12.1 thou/uL (1.40-6.50); %Basophils 0.1 % (0.0-1.0); %Eosinophils 0.1 % (0.0-10.0); %Lymphocytes 4.3 % (21.0-51.0); %Monocytes 5.3 % (0.0-10.0); %Neutrophils 89.5 % (42.0-75.0); Hematocrit 35.7 % (36.0-47.0); Hemoglobin 11.8 g/dL (12.0-16.0); Mean Corpuscular HGB CONC 33.1 g/dL (32.0-36.0); Mean Corpuscular Hemoglobin 32.2 pg (27.0-31.0); Mean Corpuscular Volume 97.3 fl (78.0-98.0); Mean Platelet Volume 9.2 fL (7.4-10.4); Platelet Count 222 10x3/uL (130-400); RBC Distribution Width 16.4 % (11.5-14.5); Red Blood Cell (RBC) Count 3.67 mill/uL (4.20-5.40); White Blood Cell (WBC) Count 13.6 10x3/uL (4.8-10.8)
[2023-03-21 06:22] LABS: ALT (SGPT) 55 U/L (8-55); AST (SGOT) 42 U/L (5-34); Albumin 2.5 g/dL (3.4-4.8); Alkaline Phosphatase 71 U/L (40-110); Anion Gap 11 mmol/L (10-20); BUN (Urea Nitrogen) 71 mg/dL (9.8-20.1); Bilirubin, Total 0.9 mg/dL (0.2-1.2); Calc. Creatinine Clearance 54 mL/min (70-130); Calcium 8.5 mg/dL (7.8-10.44); Carbon Dioxide 24 mmol/L (23-31); Chloride 102 mmol/L (98-107); Estimated GFR 54; Globulin 2.8 g/dL (2.4-3.5); Glucose 84 mg/dL (80-115); Potassium 3.4 mmol/L (3.5-5.1); Protein, Total 5.3 g/dL (5.8-8.1); Sodium 134 mmol/L (136-145)
[2023-03-21] MEDS: Melatonin 3 MG TAB PO SCH (22:38)
[2023-03-22 05:34] LABS: #Monocytes 0.8 thou/uL (0.11-0.59); %Basophils 0.1 % (0.0-1.0); %Eosinophils 0.1 % (0.0-10.0); %Lymphocytes 4.5 % (21.0-51.0); %Monocytes 5.6 % (0.0-10.0); %Neutrophils 89.2 % (42.0-75.0); Hematocrit 34.1 % (36.0-47.0); Hemoglobin 11.3 g/dL (12.0-16.0); Mean Corpuscular HGB CONC 33.1 g/dL (32.0-36.0); Mean Corpuscular Hemoglobin 32.8 pg (27.0-31.0); Mean Corpuscular Volume 98.8 fl (78.0-98.0); Mean Platelet Volume 9.2 fL (7.4-10.4); Platelet Count 258 10x3/uL (130-400); RBC Distribution Width 16.6 % (11.5-14.5); Red Blood Cell (RBC) Count 3.45 mill/uL (4.20-5.40); White Blood Cell (WBC) Count 13.5 10x3/uL (4.8-10.8)
[2023-03-22 05:59] LABS: ALT (SGPT) 53 U/L (8-55); AST (SGOT) 40 U/L (5-34); Albumin 2.5 g/dL (3.4-4.8); Alkaline Phosphatase 70 U/L (40-110); Anion Gap 9 mmol/L (10-20); BUN (Urea Nitrogen) 70 mg/dL (9.8-20.1); Bilirubin, Total 0.9 mg/dL (0.2-1.2); Calc. Creatinine Clearance 49 mL/min (70-130); Calcium 8.5 mg/dL (7.8-10.44); Carbon Dioxide 26 mmol/L (23-31); Chloride 103 mmol/L (98-107); Estimated GFR 49; Globulin 2.8 g/dL (2.4-3.5); Glucose 96 mg/dL (80-115); Potassium 3.4 mmol/L (3.5-5.1); Protein, Total 5.3 g/dL (5.8-8.1); Sodium 135 mmol/L (136-145)
[2023-03-22] MEDS: Potassium Chloride 20 MEQ TAB PO SCH (08:19)
[2023-03-22] MEDS: hydrOXYzine 25 MG TAB PO SCH (11:58)
[2023-03-22] MEDS: Apixaban 5 MG TAB PO SCH (17:27)
[2023-03-22] MEDS: Morphine 2 MG/ML VIAL SLOW IVP SCH (22:25)
[2023-03-23] MEDS: Morphine 2 MG/ML VIAL SLOW IVP PRN (05:01)
[2023-03-23 05:41] LABS: ALT (SGPT) 56 U/L (8-55); AST (SGOT) 39 U/L (5-34); Albumin 2.6 g/dL (3.4-4.8); Alkaline Phosphatase 69 U/L (40-110); Anion Gap 11 mmol/L (10-20); BUN (Urea Nitrogen) 71 mg/dL (9.8-20.1); Bilirubin, Total 0.7 mg/dL (0.2-1.2); Calc. Creatinine Clearance 44 mL/min (70-130); Calcium 8.4 mg/dL (7.8-10.44); Carbon Dioxide 25 mmol/L (23-31); Chloride 105 mmol/L (98-107); Estimated GFR 48; Globulin 2.8 g/dL (2.4-3.5); Glucose 91 mg/dL (80-115); Potassium 3.9 mmol/L (3.5-5.1); Protein, Total 5.4 g/dL (5.8-8.1); Sodium 137 mmol/L (136-145)
[2023-03-23 06:37] LABS: #Monocytes 0.7 thou/uL (0.11-0.59); #Neutrophils 10.4 thou/uL (1.40-6.50); %Basophils 0.1 % (0.0-1.0); %Eosinophils 0.1 % (0.0-10.0); %Lymphocytes 5.3 % (21.0-51.0); %Monocytes 5.9 % (0.0-10.0); %Neutrophils 88.3 % (42.0-75.0); Hemoglobin 10.9 g/dL (12.0-16.0); Mean Corpuscular HGB CONC 32.1 g/dL (32.0-36.0); Mean Corpuscular Hemoglobin 32.6 pg (27.0-31.0); Mean Corpuscular Volume 101.8 fl (78.0-98.0); Mean Platelet Volume 9.1 fL (7.4-10.4); Platelet Count 255 10x3/uL (130-400); RBC Distribution Width 16.3 % (11.5-14.5); Red Blood Cell (RBC) Count 3.34 mill/uL (4.20-5.40); White Blood Cell (WBC) Count 11.8 10x3/uL (4.8-10.8)
[2023-03-24 07:03] LABS: #Monocytes 0.5 thou/uL (0.11-0.59); #Neutrophils 9.2 thou/uL (1.40-6.50); %Basophils 0.1 % (0.0-1.0); %Lymphocytes 4.4 % (21.0-51.0); %Monocytes 4.4 % (0.0-10.0); %Neutrophils 90.6 % (42.0-75.0); Hematocrit 34.8 % (36.0-47.0); Hemoglobin 11.2 g/dL (12.0-16.0); Mean Corpuscular HGB CONC 32.2 g/dL (32.0-36.0); Mean Corpuscular Hemoglobin 32.5 pg (27.0-31.0); Mean Corpuscular Volume 100.9 fl (78.0-98.0); Mean Platelet Volume 9.4 fL (7.4-10.4); Platelet Count 256 10x3/uL (130-400); RBC Distribution Width 16.1 % (11.5-14.5); Red Blood Cell (RBC) Count 3.45 mill/uL (4.20-5.40); White Blood Cell (WBC) Count 10.1 10x3/uL (4.8-10.8)
[2023-03-24 14:45] LABS: ALT (SGPT) 46 U/L (8-55); AST (SGOT) 34 U/L (5-34); Albumin 2.3 g/dL (3.4-4.8); Alkaline Phosphatase 66 U/L (40-110); Anion Gap 12 mmol/L (10-20); BUN (Urea Nitrogen) 67 mg/dL (9.8-20.1); Bilirubin, Total 0.6 mg/dL (0.2-1.2); Calc. Creatinine Clearance 51 mL/min (70-130); Calcium 8.1 mg/dL (7.8-10.44); Carbon Dioxide 22 mmol/L (23-31); Chloride 106 mmol/L (98-107); Estimated GFR 53; Globulin 2.8 g/dL (2.4-3.5); Glucose 105 mg/dL (80-115); Potassium 3.9 mmol/L (3.5-5.1); Protein, Total 5.1 g/dL (5.8-8.1); Sodium 136 mmol/L (136-145)
[2023-03-25 06:34] LABS: #Monocytes 0.4 thou/uL (0.11-0.59); #Neutrophils 7.2 thou/uL (1.40-6.50); %Basophils 0.3 % (0.0-1.0); %Eosinophils 0.3 % (0.0-10.0); %Lymphocytes 4.3 % (21.0-51.0); %Monocytes 5.3 % (0.0-10.0); %Neutrophils 89.4 % (42.0-75.0); Hematocrit 34.4 % (36.0-47.0); Hemoglobin 11.2 g/dL (12.0-16.0); Mean Corpuscular HGB CONC 32.6 g/dL (32.0-36.0); Mean Corpuscular Hemoglobin 32.5 pg (27.0-31.0); Mean Corpuscular Volume 99.7 fl (78.0-98.0); Mean Platelet Volume 9.2 fL (7.4-10.4); Platelet Count 240 10x3/uL (130-400); RBC Distribution Width 16.1 % (11.5-14.5); Red Blood Cell (RBC) Count 3.45 mill/uL (4.20-5.40)
[2023-03-25 06:59] LABS: ALT (SGPT) 43 U/L (8-55); AST (SGOT) 29 U/L (5-34); Albumin 2.5 g/dL (3.4-4.8); Alkaline Phosphatase 72 U/L (40-110); Anion Gap 9 mmol/L (10-20); BUN (Urea Nitrogen) 59 mg/dL (9.8-20.1); Bilirubin, Total 0.7 mg/dL (0.2-1.2); Calc. Creatinine Clearance 58 mL/min (70-130); Calcium 8.1 mg/dL (7.8-10.44); Carbon Dioxide 26 mmol/L (23-31); Chloride 106 mmol/L (98-107); Estimated GFR 61; Globulin 2.7 g/dL (2.4-3.5); Glucose 98 mg/dL (80-115); Potassium 3.8 mmol/L (3.5-5.1); Protein, Total 5.2 g/dL (5.8-8.1); Sodium 137 mmol/L (136-145)
[2023-03-25] MEDS: Polyethylene Glycol 3350 17 GM Packet PO SCH (08:24)
[2023-03-26 04:53] LABS: #Monocytes 0.4 thou/uL (0.11-0.59); #Neutrophils 7.3 thou/uL (1.40-6.50); %Basophils 0.1 % (0.0-1.0); %Eosinophils 0.2 % (0.0-10.0); %Lymphocytes 5.3 % (21.0-51.0); %Monocytes 4.5 % (0.0-10.0); %Neutrophils 89.5 % (42.0-75.0); Hematocrit 34.8 % (36.0-47.0); Hemoglobin 11.4 g/dL (12.0-16.0); Mean Corpuscular HGB CONC 32.8 g/dL (32.0-36.0); Mean Corpuscular Hemoglobin 32.5 pg (27.0-31.0); Mean Corpuscular Volume 99.1 fl (78.0-98.0); Mean Platelet Volume 9.2 fL (7.4-10.4); Platelet Count 206 10x3/uL (130-400); RBC Distribution Width 16.2 % (11.5-14.5); Red Blood Cell (RBC) Count 3.51 mill/uL (4.20-5.40); White Blood Cell (WBC) Count 8.2 10x3/uL (4.8-10.8)
[2023-03-26 05:18] LABS: ALT (SGPT) 39 U/L (8-55); AST (SGOT) 31 U/L (5-34); Albumin 2.3 g/dL (3.4-4.8); Alkaline Phosphatase 71 U/L (40-110); Anion Gap 12 mmol/L (10-20); BUN (Urea Nitrogen) 53 mg/dL (9.8-20.1); Bilirubin, Total 0.6 mg/dL (0.2-1.2); Calc. Creatinine Clearance 61 mL/min (70-130); Calcium 7.7 mg/dL (7.8-10.44); Carbon Dioxide 22 mmol/L (23-31); Chloride 108 mmol/L (98-107); Estimated GFR 65; Globulin 2.8 g/dL (2.4-3.5); Glucose 98 mg/dL (80-115); Protein, Total 5.1 g/dL (5.8-8.1); Sodium 138 mmol/L (136-145)
[2023-03-27 05:46] LABS: #Monocytes 0.5 thou/uL (0.11-0.59); #Neutrophils 7.8 thou/uL (1.40-6.50); %Basophils 0.2 % (0.0-1.0); %Eosinophils 0.1 % (0.0-10.0); %Lymphocytes 6.9 % (21.0-51.0); %Neutrophils 87.4 % (42.0-75.0); Hematocrit 35.9 % (36.0-47.0); Hemoglobin 11.5 g/dL (12.0-16.0); Mean Corpuscular Hemoglobin 32.3 pg (27.0-31.0); Mean Corpuscular Volume 100.8 fl (78.0-98.0); Mean Platelet Volume 9.3 fL (7.4-10.4); Platelet Count 216 10x3/uL (130-400); RBC Distribution Width 16.2 % (11.5-14.5); Red Blood Cell (RBC) Count 3.56 mill/uL (4.20-5.40)
[2023-03-27 05:46] LABS: ALT (SGPT) 32 U/L (8-55); AST (SGOT) 28 U/L (5-34); Albumin 2.3 g/dL (3.4-4.8); Alkaline Phosphatase 70 U/L (40-110); Anion Gap 12 mmol/L (10-20); BUN (Urea Nitrogen) 50 mg/dL (9.8-20.1); Bilirubin, Total 0.6 mg/dL (0.2-1.2); Calc. Creatinine Clearance 62 mL/min (70-130); Calcium 7.9 mg/dL (7.8-10.44); Carbon Dioxide 22 mmol/L (23-31); Chloride 109 mmol/L (98-107); Estimated GFR 67; Globulin 2.8 g/dL (2.4-3.5); Glucose 102 mg/dL (80-115); Potassium 4.3 mmol/L (3.5-5.1); Protein, Total 5.1 g/dL (5.8-8.1); Sodium 139 mmol/L (136-145)
[2023-03-27] MEDS: Dronedarone HCl 400 MG TAB PO SCH (17:50)
[2023-03-28 05:45] LABS: #Monocytes 0.4 thou/uL (0.11-0.59); #Neutrophils 7.9 thou/uL (1.40-6.50); %Basophils 0.1 % (0.0-1.0); %Lymphocytes 6.1 % (21.0-51.0); %Monocytes 4.9 % (0.0-10.0); %Neutrophils 88.5 % (42.0-75.0); Hematocrit 34.3 % (36.0-47.0); Hemoglobin 10.9 g/dL (12.0-16.0); Mean Corpuscular HGB CONC 31.8 g/dL (32.0-36.0); Mean Corpuscular Hemoglobin 32.4 pg (27.0-31.0); Mean Corpuscular Volume 102.1 fl (78.0-98.0); Mean Platelet Volume 9.5 fL (7.4-10.4); Platelet Count 208 10x3/uL (130-400); RBC Distribution Width 16.1 % (11.5-14.5); Red Blood Cell (RBC) Count 3.36 mill/uL (4.20-5.40)
[2023-03-28 06:13] LABS: ALT (SGPT) 33 U/L (8-55); AST (SGOT) 27 U/L (5-34); Albumin 2.3 g/dL (3.4-4.8); Alkaline Phosphatase 74 U/L (40-110); Anion Gap 9 mmol/L (10-20); BUN (Urea Nitrogen) 48 mg/dL (9.8-20.1); Bilirubin, Total 0.6 mg/dL (0.2-1.2); Calc. Creatinine Clearance 72 mL/min (70-130); Carbon Dioxide 27 mmol/L (23-31); Chloride 107 mmol/L (98-107); Estimated GFR 77; Globulin 2.7 g/dL (2.4-3.5); Glucose 102 mg/dL (80-115); Potassium 4.3 mmol/L (3.5-5.1); Sodium 139 mmol/L (136-145)
[2023-03-29 06:29] LABS: #Monocytes 0.4 thou/uL (0.11-0.59); #Neutrophils 8.7 thou/uL (1.40-6.50); %Basophils 0.2 % (0.0-1.0); %Lymphocytes 6.8 % (21.0-51.0); %Monocytes 4.3 % (0.0-10.0); %Neutrophils 88.4 % (42.0-75.0); Hematocrit 34.1 % (36.0-47.0); Hemoglobin 10.8 g/dL (12.0-16.0); Mean Corpuscular HGB CONC 31.7 g/dL (32.0-36.0); Mean Corpuscular Hemoglobin 32.1 pg (27.0-31.0); Mean Corpuscular Volume 101.5 fl (78.0-98.0); Mean Platelet Volume 9.8 fL (7.4-10.4); Platelet Count 206 10x3/uL (130-400); RBC Distribution Width 16.3 % (11.5-14.5); Red Blood Cell (RBC) Count 3.36 mill/uL (4.20-5.40); White Blood Cell (WBC) Count 9.9 10x3/uL (4.8-10.8)
[2023-03-29 06:51] LABS: ALT (SGPT) 31 U/L (8-55); AST (SGOT) 29 U/L (5-34); Albumin 2.4 g/dL (3.4-4.8); Alkaline Phosphatase 73 U/L (40-110); Anion Gap 9 mmol/L (10-20); BUN (Urea Nitrogen) 49 mg/dL (9.8-20.1); Bilirubin, Total 0.6 mg/dL (0.2-1.2); Calc. Creatinine Clearance 70 mL/min (70-130); Calcium 7.7 mg/dL (7.8-10.44); Carbon Dioxide 28 mmol/L (23-31); Chloride 106 mmol/L (98-107); Estimated GFR 76; Globulin 2.9 g/dL (2.4-3.5); Glucose 106 mg/dL (80-115); Potassium 4.5 mmol/L (3.5-5.1); Protein, Total 5.3 g/dL (5.8-8.1); Sodium 138 mmol/L (136-145)
[2023-03-29] MEDS: Pantoprazole 40 MG VIAL IVP SCH (18:29)
[2023-03-30 05:42] LABS: #Monocytes 0.4 thou/uL (0.11-0.59); #Neutrophils 9.2 thou/uL (1.40-6.50); %Basophils 0.2 % (0.0-1.0); %Lymphocytes 7.1 % (21.0-51.0); %Monocytes 3.6 % (0.0-10.0); %Neutrophils 88.8 % (42.0-75.0); Hematocrit 26.6 % (36.0-47.0); Hemoglobin 8.3 g/dL (12.0-16.0); Mean Corpuscular HGB CONC 31.2 g/dL (32.0-36.0); Mean Corpuscular Hemoglobin 31.3 pg (27.0-31.0); Mean Corpuscular Volume 100.4 fl (78.0-98.0); Mean Platelet Volume 9.3 fL (7.4-10.4); Platelet Count 184 10x3/uL (130-400); RBC Distribution Width 15.9 % (11.5-14.5); Red Blood Cell (RBC) Count 2.65 mill/uL (4.20-5.40); White Blood Cell (WBC) Count 10.4 10x3/uL (4.8-10.8)
[2023-03-30 06:13] LABS: ALT (SGPT) 28 U/L (8-55); AST (SGOT) 25 U/L (5-34); Albumin 2.2 g/dL (3.4-4.8); Alkaline Phosphatase 69 U/L (40-110); Anion Gap 9 mmol/L (10-20); BUN (Urea Nitrogen) 55 mg/dL (9.8-20.1); Bilirubin, Total 0.7 mg/dL (0.2-1.2); Calc. Creatinine Clearance 66 mL/min (70-130); Calcium 7.8 mg/dL (7.8-10.44); Carbon Dioxide 29 mmol/L (23-31); Chloride 104 mmol/L (98-107); Estimated GFR 75; Globulin 2.6 g/dL (2.4-3.5); Glucose 90 mg/dL (80-115); Potassium 4.7 mmol/L (3.5-5.1); Protein, Total 4.8 g/dL (5.8-8.1); Sodium 137 mmol/L (136-145)
[2023-03-30] MEDS ORDERED: Pantoprazole 40 MG VIAL IVP SCH (09:00)
[2023-03-30] MEDS: Pantoprazole 40 MG VIAL IVP SCH (09:11)
[2023-03-30 10:41] LABS: Hematocrit 25.7 % (36.0-47.0); Hemoglobin 8.4 g/dL (12.0-16.0)
[2023-03-30] MEDS: Lactated Ringer's 1,000 ML IV SCH (17:46)
[2023-03-30 21:47] LABS: Hemoglobin 8.2 g/dL (12.0-16.0)
[2023-03-31 06:28] LABS: Albumin 2.3 g/dL (3.4-4.8)
[2023-03-31 06:29] LABS: #Monocytes 0.5 thou/uL (0.11-0.59); #Neutrophils 8.9 thou/uL (1.40-6.50); %Basophils 0.1 % (0.0-1.0); %Lymphocytes 7.7 % (21.0-51.0); %Monocytes 4.4 % (0.0-10.0); %Neutrophils 87.3 % (42.0-75.0); Chloride 105 mmol/L (98-107); Hemoglobin 7.8 g/dL (12.0-16.0); Mean Corpuscular HGB CONC 31.2 g/dL (32.0-36.0); Mean Corpuscular Hemoglobin 32.4 pg (27.0-31.0); Mean Platelet Volume 10.2 fL (7.4-10.4); Platelet Count 166 10x3/uL (130-400); Potassium 5.1 mmol/L (3.5-5.1); RBC Distribution Width 16.5 % (11.5-14.5); Red Blood Cell (RBC) Count 2.41 mill/uL (4.20-5.40); Sodium 135 mmol/L (136-145); White Blood Cell (WBC) Count 10.2 10x3/uL (4.8-10.8)
[2023-03-31 06:30] LABS: Calcium 7.7 mg/dL (7.8-10.44); Glucose 73 mg/dL (80-115)
[2023-03-31 06:31] LABS: Globulin 2.7 g/dL (2.4-3.5)
[2023-03-31 06:32] LABS: Anion Gap 12 mmol/L (10-20); Bilirubin, Total 0.7 mg/dL (0.2-1.2); Carbon Dioxide 23 mmol/L (23-31)
[2023-03-31 06:33] LABS: Alkaline Phosphatase 68 U/L (40-110)
[2023-03-31 06:34] LABS: Calc. Creatinine Clearance 68 mL/min (70-130); Estimated GFR 76
[2023-03-31 06:35] LABS: BUN (Urea Nitrogen) 54 mg/dL (9.8-20.1); Mean Corpuscular Volume 103.7 fl (78.0-98.0)
[2023-03-31 06:36] LABS: ALT (SGPT) 26 U/L (8-55); AST (SGOT) 34 U/L (5-34)
[2023-03-31] MEDS: Albumin 25% 25 GM (100 mL) BOT IVPB SCH ×2 (09:25→23:20)
[2023-03-31] MEDS: Furosemide 20 MG (2 mL) VIAL SLOW IVP SCH ×2 (09:25→23:20)
[2023-03-31 14:48] LABS: Hematocrit 23.3 % (36.0-47.0); Hemoglobin 7.6 g/dL (12.0-16.0)
[2023-03-31] MEDS: Melatonin 3 MG TAB PO PRN (20:59)
[2023-03-31 21:48] LABS: Hematocrit 23.6 % (36.0-47.0); Hemoglobin 7.5 g/dL (12.0-16.0)
[2023-04-01 04:40] LABS: #Monocytes 0.4 thou/uL (0.11-0.59); #Neutrophils 10.6 thou/uL (1.40-6.50); %Basophils 0.2 % (0.0-1.0); %Lymphocytes 7.9 % (21.0-51.0); %Monocytes 3.1 % (0.0-10.0); %Neutrophils 87.5 % (42.0-75.0); Hemoglobin 7.2 g/dL (12.0-16.0); Mean Corpuscular HGB CONC 32.7 g/dL (32.0-36.0); Mean Corpuscular Hemoglobin 32.4 pg (27.0-31.0); Mean Corpuscular Volume 99.1 fl (78.0-98.0); Mean Platelet Volume 10.1 fL (7.4-10.4); Platelet Count 154 10x3/uL (130-400); RBC Distribution Width 16.1 % (11.5-14.5); Red Blood Cell (RBC) Count 2.22 mill/uL (4.20-5.40); White Blood Cell (WBC) Count 12.1 10x3/uL (4.8-10.8)
[2023-04-01 04:54] LABS: ALT (SGPT) 26 U/L (8-55); AST (SGOT) 37 U/L (5-34); Albumin 3.5 g/dL (3.4-4.8); Alkaline Phosphatase 62 U/L (40-110); Anion Gap 16 mmol/L (10-20); BUN (Urea Nitrogen) 53 mg/dL (9.8-20.1); Bilirubin, Total 1.1 mg/dL (0.2-1.2); Calc. Creatinine Clearance 61 mL/min (70-130); Calcium 7.9 mg/dL (7.8-10.44); Carbon Dioxide 24 mmol/L (23-31); Chloride 101 mmol/L (98-107); Estimated GFR 67; Globulin 2.1 g/dL (2.4-3.5); Glucose 94 mg/dL (80-115); Potassium 4.3 mmol/L (3.5-5.1); Protein, Total 5.6 g/dL (5.8-8.1); Sodium 137 mmol/L (136-145)
[2023-04-01] MEDS ORDERED: Ipratropium/Albuterol 3 ML NEB NEB PRN (05:29)
[2023-04-01 05:42] LABS: Actual Bicarbonate (HCO3a) 29.2 mEq/L (22-28); Base Excess (BEa) 0.6 mEq/L (-2.0 to +3.0); Calcium, Ionized (arterial) 1.15 mmol/L (1.12-1.30); Carboxyhemoglobin (COHb) 0.8 gm% (0.0-3.0); Hematocrit-ABG 22 % (36.0-47.0); Hemoglobin (Hb) 7.6 g/dL (12.0-16.0); O2 Tension (PaO2), arterial 63.9 mmHg (> 80.0); Potassium - ABG Lab 3.73 mmol/L (3.70-5.30)
[2023-04-01 05:43] LABS: pH, Arterial 7.202 (7.35-7.45)
[2023-04-01 05:44] LABS: Puncture Site LBA
[2023-04-01] MEDS ORDERED: Fentanyl BOLUS 250 ML IVPB PRN (06:15)
[2023-04-01] MEDS ORDERED: DISCONTINUE PREVIOUS NARCOTIC PAIN MEDICATIONS AND BENZODIAZEPINES FS SCH (06:15)
[2023-04-01] MEDS ORDERED: Propofol BOLUS 1,000 MG/100 ML VIAL IV PRN (06:15)
[2023-04-01 06:26] LABS: INR-International Normal Ratio 1.5; Lactic Acid 1.2 mmol/L (0.5-2.2); PTT 33.9 sec (22.9-36.1)
[2023-04-01] MEDS ORDERED: Rocuronium Bromide 10 MG/ML (10ML VIAL) ONE (06:31)
[2023-04-01] MEDS ORDERED: Etomidate 40 MG (20 mL) VIAL ONE (06:31)
[2023-04-01 06:32] LABS: Magnesium 1.8 mg/dL (1.6-2.6); Phosphorus 4.4 mg/dL (2.3-4.7)
[2023-04-01] MEDS: Rocuronium Bromide 10 MG/ML (10ML VIAL) IVP SCH (06:32)
[2023-04-01] MEDS: Etomidate 40 MG (20 mL) VIAL IVP SCH (06:32)
[2023-04-01] MEDS: Furosemide 20 MG (2 mL) VIAL SLOW IVP SCH (06:43)
[2023-04-01] MEDS: Ventilator Sedation Protocol 1 EACH FS ONE (06:44)
[2023-04-01] MEDS: Propofol 1,000 MG/100 ML VIAL IV PRN (06:44)
[2023-04-01 07:16] LABS: Actual Bicarbonate (HCO3a) 23.6 mEq/L (22-28); Base Excess (BEa) 0.9 mEq/L (-2.0 to +3.0); Carboxyhemoglobin (COHb) 1.1 gm% (0.0-3.0); Hematocrit-ABG 20 % (36.0-47.0); Hemoglobin (Hb) 6.8 g/dL (12.0-16.0); O2 Tension (PaO2), arterial 145.1 mmHg (> 80.0); pH, Arterial 7.528 (7.35-7.45)
[2023-04-01 07:17] LABS: Calcium, Ionized (arterial) 1.05 mmol/L (1.12-1.30); Potassium - ABG Lab 3.42 mmol/L (3.70-5.30); Puncture Site RRA
[2023-04-01] MEDS: Ipratropium/Albuterol 3 ML NEB NEB SCH (07:34)
[2023-04-01] MEDS: NOREPINEPHRINE 8 MG/250 ML-D5W 250 ML IVPB SCH (07:35)
[2023-04-01] MEDS: Fentanyl CADD 100 ML IV SCH (08:51)
[2023-04-01] MEDS: Albumin 25% 25 GM (100 mL) BOT IVPB SCH (09:14)
[2023-04-01] MEDS: Furosemide 100 MG in Sodium Chloride 0.9% 90 ML IVPB SCH (10:16)
[2023-04-01] MEDS: Hydrocortisone Sod Succ/PF 100 mg/2 ml Vial IVP SCH (17:32)
[2023-04-02 04:29] LABS: #Monocytes 0.5 thou/uL (0.11-0.59); #Neutrophils 10.6 thou/uL (1.40-6.50); %Lymphocytes 6.3 % (21.0-51.0); %Neutrophils 89.1 % (42.0-75.0); Hemoglobin 5.9 g/dL (12.0-16.0); Mean Corpuscular HGB CONC 32.8 g/dL (32.0-36.0); Mean Corpuscular Hemoglobin 31.2 pg (27.0-31.0); Mean Platelet Volume 10.6 fL (7.4-10.4); Platelet Count 155 10x3/uL (130-400); RBC Distribution Width 16.1 % (11.5-14.5); Red Blood Cell (RBC) Count 1.89 mill/uL (4.20-5.40); White Blood Cell (WBC) Count 11.9 10x3/uL (4.8-10.8)
[2023-04-02 04:33] LABS: Critical Call w/ Read Back NUR.SJB@0433
[2023-04-02 04:34] LABS: Mean Corpuscular Volume 95.2 fl (78.0-98.0)
[2023-04-02 04:54] LABS: ALT (SGPT) 23 U/L (8-55); AST (SGOT) 30 U/L (5-34); Albumin 3.2 g/dL (3.4-4.8); Alkaline Phosphatase 60 U/L (40-110); Anion Gap 15 mmol/L (10-20); BUN (Urea Nitrogen) 54 mg/dL (9.8-20.1); Bilirubin, Total 1.1 mg/dL (0.2-1.2); Calc. Creatinine Clearance 43 mL/min (70-130); Calcium 7.8 mg/dL (7.8-10.44); Carbon Dioxide 32 mmol/L (23-31); Chloride 97 mmol/L (98-107); Estimated GFR 46; Globulin 1.8 g/dL (2.4-3.5); Glucose 166 mg/dL (80-115); Sodium 142 mmol/L (136-145)
[2023-04-02 04:58] LABS: #Monocytes 0.5 thou/uL (0.11-0.59); #Neutrophils 10.4 thou/uL (1.40-6.50); %Lymphocytes 7.7 % (21.0-51.0); %Monocytes 3.9 % (0.0-10.0); %Neutrophils 87.7 % (42.0-75.0); Hemoglobin 5.9 g/dL (12.0-16.0); Mean Corpuscular HGB CONC 34.7 g/dL (32.0-36.0); Mean Corpuscular Hemoglobin 32.8 pg (27.0-31.0); Mean Corpuscular Volume 94.4 fl (78.0-98.0); Mean Platelet Volume 10.1 fL (7.4-10.4); Platelet Count 147 10x3/uL (130-400); RBC Distribution Width 15.9 % (11.5-14.5); White Blood Cell (WBC) Count 11.8 10x3/uL (4.8-10.8)
[2023-04-02 05:04] LABS: Critical Call Chemistry ICU.RH3 @0503; Potassium 2.3 mmol/L (3.5-5.1)
[2023-04-02] MEDS: Potassium Chloride 40 MEQ in Premix 1 BAG IVPB PRN (05:44)
[2023-04-02] MEDS ORDERED: Furosemide 40 MG (4 mL) VIAL SLOW IVP PRN (08:10)
[2023-04-02] MEDS: dilTIAZem 30 MG TAB PO SCH (09:17)
[2023-04-02 11:05] LABS: Potassium 3.5 mmol/L (3.5-5.1)
[2023-04-02 13:08] LABS: Mean Platelet Volume 10.8 fL (7.4-10.4); Platelet Count 141 10x3/uL (130-400); Red Blood Cell (RBC) Count 3.36 mill/uL (4.20-5.40); White Blood Cell (WBC) Count 13.5 10x3/uL (4.8-10.8)
[2023-04-02 13:10] LABS: Hemoglobin 10.4 g/dL (12.0-16.0)
[2023-04-02 13:11] LABS: Hematocrit 29.7 % (36.0-47.0); Mean Corpuscular Volume 88.4 fl (78.0-98.0)
[2023-04-02] MEDS ORDERED: Vancomycin HCl 125 MG Capsule PO SCH (14:45)
[2023-04-03 04:50] LABS: #Monocytes 0.3 thou/uL (0.11-0.59); #Neutrophils 12.3 thou/uL (1.40-6.50); %Basophils 0.2 % (0.0-1.0); %Lymphocytes 4.3 % (21.0-51.0); %Neutrophils 92.8 % (42.0-75.0); Hematocrit 27.5 % (36.0-47.0); Hemoglobin 9.3 g/dL (12.0-16.0); Mean Corpuscular HGB CONC 33.8 g/dL (32.0-36.0); Mean Corpuscular Hemoglobin 30.5 pg (27.0-31.0); Mean Corpuscular Volume 90.2 fl (78.0-98.0); Mean Platelet Volume 10.6 fL (7.4-10.4); Platelet Count 121 10x3/uL (130-400); RBC Distribution Width 17.9 % (11.5-14.5); Red Blood Cell (RBC) Count 3.05 mill/uL (4.20-5.40); White Blood Cell (WBC) Count 13.3 10x3/uL (4.8-10.8)
[2023-04-03 05:16] LABS: ALT (SGPT) 19 U/L (8-55); AST (SGOT) 26 U/L (5-34); Albumin 2.7 g/dL (3.4-4.8); Alkaline Phosphatase 66 U/L (40-110); BUN (Urea Nitrogen) 48 mg/dL (9.8-20.1); Bilirubin, Total 0.8 mg/dL (0.2-1.2); Calc. Creatinine Clearance 46 mL/min (70-130); Calcium 7.6 mg/dL (7.8-10.44); Estimated GFR 53; Globulin 1.9 g/dL (2.4-3.5); Glucose 162 mg/dL (80-115); Protein, Total 4.6 g/dL (5.8-8.1)
[2023-04-03 05:19] LABS: Critical Call Chemistry ICU.RB@0519; Potassium 2.5 mmol/L (3.5-5.1)
[2023-04-03 05:27] LABS: Anion Gap 16 mmol/L (10-20); Carbon Dioxide 34 mmol/L (23-31); Chloride 98 mmol/L (98-107); Sodium 145 mmol/L (136-145)
[2023-04-03 06:17] LABS: Magnesium 1.5 mg/dL (1.6-2.6)
[2023-04-03] MEDS: Potassium Chloride 40 MEQ in Premix 1 BAG IVPB SCH (06:24)
[2023-04-03 08:23] LABS: Actual Bicarbonate (HCO3a) 38.3 mEq/L (22-28); Base Excess (BEa) 14.1 mEq/L (-2.0 to +3.0); CO2 Tension 46.7 mmHg (35.0-45.0); Carboxyhemoglobin (COHb) 0.1 gm% (0.0-3.0); Hematocrit-ABG 30 % (36.0-47.0); Hemoglobin (Hb) 10.2 g/dL (12.0-16.0); O2 Tension (PaO2), arterial 87.2 mmHg (> 80.0); Potassium - ABG Lab 2.91 mmol/L (3.70-5.30); pH, Arterial 7.532 (7.35-7.45)
[2023-04-03 08:24] LABS: ALV-art Gradient 139.625 mmHg (0-20); Puncture Site RRA
[2023-04-03] MEDS: Calcium Chloride 13.6 MEQ in Sodium Chloride 0.9% 100 ML IVPB SCH (09:14)
[2023-04-03] MEDS ORDERED: Electrolyte Replacement Protocol 1 EACH FS PRN (10:21)
[2023-04-03] MEDS: Magnesium 2 GM/50 ML(in water) 2 GM in Premix 1 BAG IVPB SCH (11:49)
[2023-04-03 12:19] LABS: Platelet Count 113 10x3/uL (130-400)
[2023-04-03 12:30] LABS: Fibrinogen 182 mg/dL (253-463)
[2023-04-03 12:31] LABS: INR-International Normal Ratio 1.2; PTT 31.7 sec (22.9-36.1); Prothrombin Time 15.5 sec (12.0-14.7)
[2023-04-03 12:32] LABS: D-Dimer Test 2.59 mcg/mL (0.27-0.43)
[2023-04-03 19:02] LABS: Potassium 3.6 mmol/L (3.5-5.1)
[2023-04-04 04:31] LABS: #Monocytes 0.5 thou/uL (0.11-0.59); #Neutrophils 15.5 thou/uL (1.40-6.50); %Basophils 0.1 % (0.0-1.0); %Lymphocytes 4.1 % (21.0-51.0); %Monocytes 2.9 % (0.0-10.0); %Neutrophils 92.4 % (42.0-75.0); Hematocrit 26.5 % (36.0-47.0); Hemoglobin 8.7 g/dL (12.0-16.0); Mean Corpuscular HGB CONC 32.8 g/dL (32.0-36.0); Mean Corpuscular Hemoglobin 30.5 pg (27.0-31.0); Mean Platelet Volume 10.7 fL (7.4-10.4); Platelet Count 113 10x3/uL (130-400); Red Blood Cell (RBC) Count 2.85 mill/uL (4.20-5.40); White Blood Cell (WBC) Count 16.7 10x3/uL (4.8-10.8)
[2023-04-04 04:56] LABS: ALT (SGPT) 16 U/L (8-55); AST (SGOT) 18 U/L (5-34); Albumin 2.5 g/dL (3.4-4.8); Alkaline Phosphatase 53 U/L (40-110); BUN (Urea Nitrogen) 49 mg/dL (9.8-20.1); Bilirubin, Total 0.6 mg/dL (0.2-1.2); Calc. Creatinine Clearance 58 mL/min (70-130); Calcium 7.9 mg/dL (7.8-10.44); Estimated GFR 73; Globulin 1.9 g/dL (2.4-3.5); Glucose 132 mg/dL (80-115); Protein, Total 4.4 g/dL (5.8-8.1)
[2023-04-04 05:05] LABS: Anion Gap 15 mmol/L (10-20); Carbon Dioxide 32 mmol/L (23-31); Chloride 100 mmol/L (98-107); Potassium 3.4 mmol/L (3.5-5.1); Sodium 144 mmol/L (136-145)
[2023-04-04] MEDS: Potassium Chloride 20 MEQ in Premix 1 BAG IVPB SCH (09:34)
[2023-04-04] MEDS: Enoxaparin 40 MG (0.4 mL) SYRINGE SC SCH (21:43)
[2023-04-05 04:59] LABS: #Monocytes 0.7 thou/uL (0.11-0.59); #Neutrophils 15.1 thou/uL (1.40-6.50); %Basophils 0.1 % (0.0-1.0); %Lymphocytes 3.4 % (21.0-51.0); %Monocytes 4.4 % (0.0-10.0); %Neutrophils 91.4 % (42.0-75.0); Hematocrit 28.2 % (36.0-47.0); Hemoglobin 9.2 g/dL (12.0-16.0); Mean Corpuscular HGB CONC 32.6 g/dL (32.0-36.0); Mean Corpuscular Hemoglobin 30.7 pg (27.0-31.0); Mean Platelet Volume 10.7 fL (7.4-10.4); Platelet Count 127 10x3/uL (130-400); RBC Distribution Width 18.1 % (11.5-14.5); White Blood Cell (WBC) Count 16.5 10x3/uL (4.8-10.8)
[2023-04-05 05:27] LABS: ALT (SGPT) 16 U/L (8-55); AST (SGOT) 24 U/L (5-34); Albumin 2.6 g/dL (3.4-4.8); Alkaline Phosphatase 66 U/L (40-110); BUN (Urea Nitrogen) 52 mg/dL (9.8-20.1); Bilirubin, Total 0.8 mg/dL (0.2-1.2); Calc. Creatinine Clearance 63 mL/min (70-130); Calcium 7.9 mg/dL (7.8-10.44); Estimated GFR 80; Globulin 2.2 g/dL (2.4-3.5); Glucose 108 mg/dL (80-115); Protein, Total 4.8 g/dL (5.8-8.1)
[2023-04-05 05:36] LABS: Anion Gap 16 mmol/L (10-20); Carbon Dioxide 31 mmol/L (23-31); Chloride 101 mmol/L (98-107); Potassium 3.1 mmol/L (3.5-5.1); Sodium 145 mmol/L (136-145)
[2023-04-05] MEDS: Potassium Chloride 20 MEQ in Premix 1 BAG IVPB SCH (08:03)
[2023-04-05] MEDS ORDERED: fentaNYL PF 100 MCG/2 ML SYRINGE ONE (12:40)
[2023-04-05] MEDS ORDERED: Midazolam HCl 2 mg/2 ml Vial ONE ×2 (12:41→14:00)
[2023-04-05] MEDS ORDERED: PROPOFOL 0 ML ONE (12:41)
[2023-04-05] MEDS ORDERED: PHENYLEPHRINE-NS 100 MCG/ML 10 ML SYRINGE ONE (12:41)
[2023-04-05] MEDS ORDERED: ePHEDrine Sulfate 50 MG/10 ML VIAL ONE (12:41)
[2023-04-05] MEDS ORDERED: Rocuronium Bromide 10 MG/ML (10ML VIAL) ONE (12:41)
[2023-04-05] MEDS ORDERED: Lidocaine 1% PF 5 ML VIAL ONE (12:48)
[2023-04-05] MEDS ORDERED: Phenylephrine 40 MG/NS 250 ML 0 ML ONE (13:42)
[2023-04-05] MEDS: Albumin 25% 25 GM (100 mL) BOT IVPB SCH (16:24)
[2023-04-05] MEDS: NOREPINEPHRINE 8 MG/250 ML-D5W 250 ML IVPB SCH (18:20)
[2023-04-06 04:07] LABS: #Monocytes 0.3 thou/uL (0.11-0.59); #Neutrophils 13.1 thou/uL (1.40-6.50); %Basophils 0.1 % (0.0-1.0); %Lymphocytes 2.9 % (21.0-51.0); %Monocytes 2.2 % (0.0-10.0); %Neutrophils 94.2 % (42.0-75.0); Hematocrit 25.9 % (36.0-47.0); Hemoglobin 8.3 g/dL (12.0-16.0); Mean Corpuscular Hemoglobin 30.2 pg (27.0-31.0); Mean Corpuscular Volume 94.2 fl (78.0-98.0); Mean Platelet Volume 9.9 fL (7.4-10.4); Platelet Count 121 10x3/uL (130-400); RBC Distribution Width 18.1 % (11.5-14.5); Red Blood Cell (RBC) Count 2.75 mill/uL (4.20-5.40); White Blood Cell (WBC) Count 13.9 10x3/uL (4.8-10.8)
[2023-04-06 04:29] LABS: ALT (SGPT) 12 U/L (8-55); AST (SGOT) 21 U/L (5-34); Albumin 2.9 g/dL (3.4-4.8); Alkaline Phosphatase 56 U/L (40-110); Anion Gap 10 mmol/L (10-20); BUN (Urea Nitrogen) 50 mg/dL (9.8-20.1); Bilirubin, Total 1.3 mg/dL (0.2-1.2); Calc. Creatinine Clearance 66 mL/min (70-130); Calcium 7.6 mg/dL (7.8-10.44); Carbon Dioxide 35 mmol/L (23-31); Chloride 103 mmol/L (98-107); Estimated GFR 83; Globulin 2.1 g/dL (2.4-3.5); Glucose 107 mg/dL (80-115); Potassium 3.1 mmol/L (3.5-5.1); Sodium 145 mmol/L (136-145)
[2023-04-06] MEDS: Potassium Chloride 20 MEQ in Premix 1 BAG IVPB SCH (08:40)
[2023-04-06 17:34] LABS: Anion Gap 11 mmol/L (10-20); BUN (Urea Nitrogen) 48 mg/dL (9.8-20.1); Calc. Creatinine Clearance 70 mL/min (70-130); Calcium 7.6 mg/dL (7.8-10.44); Carbon Dioxide 34 mmol/L (23-31); Chloride 105 mmol/L (98-107); Estimated GFR 87; Glucose 85 mg/dL (80-115); Potassium 3.5 mmol/L (3.5-5.1); Sodium 146 mmol/L (136-145)
[2023-04-06] MEDS: Metoprolol Tartrate 5 MG (5 mL) VIAL IVP SCH (19:56)
[2023-04-06] MEDS: Magnesium 2 GM/50 ML(in water) 2 GM in Premix 1 BAG IVPB SCH (19:57)
[2023-04-06 20:07] LABS: Magnesium 1.9 mg/dL (1.6-2.6)
[2023-04-07] MEDS: Potassium Chloride 20 MEQ in Premix 1 BAG IVPB SCH (00:20)
[2023-04-07 04:30] LABS: #Monocytes 0.3 thou/uL (0.11-0.59); #Neutrophils 11.3 thou/uL (1.40-6.50); %Basophils 0.1 % (0.0-1.0); %Monocytes 2.3 % (0.0-10.0); Hematocrit 24.8 % (36.0-47.0); Hemoglobin 7.8 g/dL (12.0-16.0); Mean Corpuscular HGB CONC 31.5 g/dL (32.0-36.0); Mean Corpuscular Hemoglobin 30.7 pg (27.0-31.0); Mean Platelet Volume 10.8 fL (7.4-10.4); Platelet Count 138 10x3/uL (130-400); RBC Distribution Width 18.1 % (11.5-14.5); Red Blood Cell (RBC) Count 2.54 mill/uL (4.20-5.40); White Blood Cell (WBC) Count 12.2 10x3/uL (4.8-10.8)
[2023-04-07 04:51] LABS: ALT (SGPT) 13 U/L (8-55); AST (SGOT) 22 U/L (5-34); Albumin 2.7 g/dL (3.4-4.8); Alkaline Phosphatase 61 U/L (40-110); Anion Gap 10 mmol/L (10-20); BUN (Urea Nitrogen) 50 mg/dL (9.8-20.1); Bilirubin, Total 0.9 mg/dL (0.2-1.2); Calc. Creatinine Clearance 73 mL/min (70-130); Calcium 7.6 mg/dL (7.8-10.44); Carbon Dioxide 33 mmol/L (23-31); Chloride 106 mmol/L (98-107); Estimated GFR 93; Globulin 2.3 g/dL (2.4-3.5); Glucose 114 mg/dL (80-115); Potassium 4.2 mmol/L (3.5-5.1); Sodium 145 mmol/L (136-145)
[2023-04-07 05:31] LABS: Mean Corpuscular Volume 97.6 fl (78.0-98.0)
[2023-04-07] MEDS: Metoprolol Tartrate 5 MG (5 mL) VIAL IVP SCH (19:33)
[2023-04-08] MEDS: Metoprolol Tartrate 5 MG (5 mL) VIAL IVP SCH ×2 (01:59→20:00)
[2023-04-08 03:32] LABS: #Monocytes 0.2 thou/uL (0.11-0.59); #Neutrophils 9.8 thou/uL (1.40-6.50); %Lymphocytes 3.8 % (21.0-51.0); %Monocytes 2.2 % (0.0-10.0); %Neutrophils 93.4 % (42.0-75.0); Hematocrit 22.8 % (36.0-47.0); Hemoglobin 7.2 g/dL (12.0-16.0); Mean Corpuscular HGB CONC 31.6 g/dL (32.0-36.0); Mean Corpuscular Volume 98.3 fl (78.0-98.0); Mean Platelet Volume 10.1 fL (7.4-10.4); Platelet Count 138 10x3/uL (130-400); Red Blood Cell (RBC) Count 2.32 mill/uL (4.20-5.40); White Blood Cell (WBC) Count 10.5 10x3/uL (4.8-10.8)
[2023-04-08 03:55] LABS: ALT (SGPT) 14 U/L (8-55); AST (SGOT) 21 U/L (5-34); Albumin 2.5 g/dL (3.4-4.8); Alkaline Phosphatase 55 U/L (40-110); Anion Gap 9 mmol/L (10-20); BUN (Urea Nitrogen) 49 mg/dL (9.8-20.1); Bilirubin, Total 0.7 mg/dL (0.2-1.2); Calc. Creatinine Clearance 81 mL/min (70-130); Calcium 7.7 mg/dL (7.8-10.44); Carbon Dioxide 32 mmol/L (23-31); Chloride 109 mmol/L (98-107); Estimated GFR 96; Globulin 2.1 g/dL (2.4-3.5); Glucose 129 mg/dL (80-115); Potassium 3.7 mmol/L (3.5-5.1); Protein, Total 4.6 g/dL (5.8-8.1); Sodium 146 mmol/L (136-145)
[2023-04-08] MEDS: Potassium Chloride 40 MEQ in Premix 1 BAG IVPB SCH (10:04)
[2023-04-08] MEDS: Metoprolol Tartrate 25 MG TAB PO SCH (10:07)
[2023-04-08] MEDS: Morphine 4 MG/ML VIAL SLOW IVP PRN (14:22)
[2023-04-08] MEDS: Lorazepam 2 MG/ML VIAL SLOW IVP PRN (16:18)
[2023-04-08] MEDS: Furosemide 40 MG (4 mL) VIAL SLOW IVP SCH (19:28)
[2023-04-08] MEDS: Metoprolol Tartrate 5 MG (5 mL) VIAL ONE (20:24)
[2023-04-09] MEDS: Magnesium 2 GM/50 ML(in water) 2 GM in Premix 1 BAG IVPB SCH (00:04)
[2023-04-09 03:44] LABS: #Monocytes 0.3 thou/uL (0.11-0.59); #Neutrophils 10.7 thou/uL (1.40-6.50); %Basophils 0.1 % (0.0-1.0); %Lymphocytes 8.2 % (21.0-51.0); %Monocytes 2.8 % (0.0-10.0); %Neutrophils 88.3 % (42.0-75.0); Hematocrit 22.4 % (36.0-47.0); Hemoglobin 7.1 g/dL (12.0-16.0); Mean Corpuscular HGB CONC 31.7 g/dL (32.0-36.0); Mean Corpuscular Hemoglobin 30.9 pg (27.0-31.0); Mean Corpuscular Volume 97.4 fl (78.0-98.0); Platelet Count 168 10x3/uL (130-400); RBC Distribution Width 17.6 % (11.5-14.5); White Blood Cell (WBC) Count 12.1 10x3/uL (4.8-10.8)
[2023-04-09 04:10] LABS: ALT (SGPT) 20 U/L (8-55); AST (SGOT) 25 U/L (5-34); Albumin 2.5 g/dL (3.4-4.8); Alkaline Phosphatase 64 U/L (40-110); Anion Gap 9 mmol/L (10-20); BUN (Urea Nitrogen) 50 mg/dL (9.8-20.1); Bilirubin, Total 0.7 mg/dL (0.2-1.2); Calc. Creatinine Clearance 80 mL/min (70-130); Calcium 7.4 mg/dL (7.8-10.44); Carbon Dioxide 35 mmol/L (23-31); Chloride 107 mmol/L (98-107); Estimated GFR 95; Globulin 2.3 g/dL (2.4-3.5); Glucose 152 mg/dL (80-115); Potassium 3.1 mmol/L (3.5-5.1); Protein, Total 4.8 g/dL (5.8-8.1); Sodium 148 mmol/L (136-145)
[2023-04-09] MEDS: Potassium Chloride 20 MEQ in Premix 1 BAG IVPB SCH (05:50)
[2023-04-09 13:21] LABS: Bacteria/HPF 4+ HPF (None Seen); Bilirubin Negative (Negative); Blood, Urine Negative (Negative); Clarity Clear (Clear); Glucose, Urine (Dipstick) Normal (Negative); Ketone, Urine Negative (Negative); Leukocyte 75 Leu/uL (Negative); Nitrite Negative (Negative); Protein, Urine (Dipstick) 30 mg/dL (Neg-Trace); RBC/HPF 0-3 HPF (0-3); Specific Gravity, Urine 1.024 (1.002-1.036); Squamous Epithelial None Seen HPF (0-3); WBC/HPF 21-50 HPF (0-3); pH, Urine 5.5 (5.0-9.0)
[2023-04-09 16:35] LABS: #Monocytes 0.4 thou/uL (0.11-0.59); #Neutrophils 10.1 thou/uL (1.40-6.50); %Lymphocytes 6.1 % (21.0-51.0); %Monocytes 3.4 % (0.0-10.0); Hematocrit 20.8 % (36.0-47.0); Hemoglobin 6.6 g/dL (12.0-16.0); Mean Corpuscular HGB CONC 31.7 g/dL (32.0-36.0); Mean Corpuscular Hemoglobin 30.8 pg (27.0-31.0); Mean Corpuscular Volume 97.2 fl (78.0-98.0); Mean Platelet Volume 10.3 fL (7.4-10.4); Platelet Count 178 10x3/uL (130-400); RBC Distribution Width 17.9 % (11.5-14.5); Red Blood Cell (RBC) Count 2.14 mill/uL (4.20-5.40); White Blood Cell (WBC) Count 11.3 10x3/uL (4.8-10.8)
[2023-04-09 16:55] LABS: Potassium 3.6 mmol/L (3.5-5.1)
[2023-04-10 03:08] LABS: #Monocytes 0.3 thou/uL (0.11-0.59); #Neutrophils 7.9 thou/uL (1.40-6.50); %Lymphocytes 6.7 % (21.0-51.0); %Monocytes 3.4 % (0.0-10.0); %Neutrophils 89.2 % (42.0-75.0); Hematocrit 24.8 % (36.0-47.0); Hemoglobin 8.3 g/dL (12.0-16.0); Mean Corpuscular HGB CONC 33.5 g/dL (32.0-36.0); Mean Corpuscular Hemoglobin 30.6 pg (27.0-31.0); Mean Platelet Volume 10.3 fL (7.4-10.4); Platelet Count 144 10x3/uL (130-400); RBC Distribution Width 18.7 % (11.5-14.5); Red Blood Cell (RBC) Count 2.71 mill/uL (4.20-5.40); White Blood Cell (WBC) Count 8.8 10x3/uL (4.8-10.8)
[2023-04-10 03:15] LABS: Mean Corpuscular Volume 91.5 fl (78.0-98.0)
[2023-04-10 03:40] LABS: ALT (SGPT) 15 U/L (8-55); AST (SGOT) 19 U/L (5-34); Albumin 2.3 g/dL (3.4-4.8); Alkaline Phosphatase 57 U/L (40-110); Anion Gap 9 mmol/L (10-20); BUN (Urea Nitrogen) 49 mg/dL (9.8-20.1); Bilirubin, Total 1.1 mg/dL (0.2-1.2); Calc. Creatinine Clearance 94 mL/min (70-130); Calcium 7.4 mg/dL (7.8-10.44); Carbon Dioxide 30 mmol/L (23-31); Chloride 111 mmol/L (98-107); Estimated GFR 100; Glucose 108 mg/dL (80-115); Potassium 3.3 mmol/L (3.5-5.1); Protein, Total 4.3 g/dL (5.8-8.1); Sodium 147 mmol/L (136-145)
[2023-04-10] MEDS: Potassium Chloride 20 MEQ in Premix 1 BAG IVPB SCH (05:13)
[2023-04-10] MEDS: Lorazepam 2 MG/ML VIAL SLOW IVP PRN (11:59)
[2023-04-10] MEDS: Morphine 2 MG/ML VIAL SLOW IVP PRN (20:49)
[2023-04-11 04:29] LABS: Delete Auto Diff?? YES; Hematocrit 25.1 % (36.0-47.0); Hemoglobin 8.3 g/dL (12.0-16.0); Manual Diff?? YES; Mean Corpuscular HGB CONC 33.1 g/dL (32.0-36.0); Mean Corpuscular Hemoglobin 30.6 pg (27.0-31.0); Mean Corpuscular Volume 92.6 fl (78.0-98.0); Mean Platelet Volume 10.3 fL (7.4-10.4); Platelet Count 166 10x3/uL (130-400); RBC Distribution Width 18.6 % (11.5-14.5); Red Blood Cell (RBC) Count 2.71 mill/uL (4.20-5.40); White Blood Cell (WBC) Count 10.7 10x3/uL (4.8-10.8)
[2023-04-11 05:20] LABS: Anisocytosis SLIGHT = 6-15 cells HPF (0-5); Band 15 % (5-11); CellaVision Operator ID lab.abc; Large Platelets 2.9 % (0-5); Lymphocytes 2 % (21-51); Monocytes 1 % (0-10); Neutrophil 82 % (42-75); Platelet Adequacy Comment Platelets Normal; Polychromasia SLIGHT = 2-3 cells HPF (0-2); Smudge Cells 15.7 %; Total Cell Count 102
[2023-04-11 05:49] LABS: ALT (SGPT) 14 U/L (8-55); AST (SGOT) 16 U/L (5-34); Alkaline Phosphatase 61 U/L (40-110); Anion Gap 7 mmol/L (10-20); BUN (Urea Nitrogen) 45 mg/dL (9.8-20.1); Bilirubin, Total 0.9 mg/dL (0.2-1.2); Calc. Creatinine Clearance 87 mL/min (70-130); Carbon Dioxide 30 mmol/L (23-31); Estimated GFR 98; Globulin 2.1 g/dL (2.4-3.5); Glucose 161 mg/dL (80-115); Potassium 3.3 mmol/L (3.5-5.1); Protein, Total 4.4 g/dL (5.8-8.1)
[2023-04-11 06:24] LABS: Albumin 2.3 g/dL (3.4-4.8); Calcium 7.4 mg/dL (7.8-10.44); Chloride 112 mmol/L (98-107); Sodium 146 mmol/L (136-145)
[2023-04-11] MEDS: Potassium Chloride 20 MEQ in Premix 1 BAG IVPB SCH (08:58)
[2023-04-12 00:21] VITALS: BMI 27.3
[2023-04-12] MEDS ORDERED: Glycopyrrolate 0.4 MG/ 2 ML VIAL SLOW IVP PRN (09:33)
[2023-04-12] MEDS ORDERED: GLYCOPYRROLATE/PF 0.2 MG/ML VIAL SLOW IVP PRN (09:38)
[2023-04-12 14:29] VITALS: BP 88/58
[2023-04-12 16:54] VITALS: TEMP 98.1
== END 2023-04-12 17:24 | disposition hospice, home (50) | DRG 3 ==
LOC: ERS 12:24 → ERHOLD 16:55 → CCU 19:58 → MSONC 03-19 11:20 → CCU 04-01 05:38
PROVIDERS: ADMIT Student in an Organized Health Care Education/Training Program; ATTEND Student in an Organized Health Care Education/Training Program
PROC: 0W9D0ZZ Drainage of Pericardial Cavity, Open Approach (ICD-10-PCS; 2023-03-06)
PROC: 0BJ08ZZ Inspection of Tracheobronchial Tree, Via Natural or Artificial Opening Endoscopic (ICD-10-PCS; 2023-03-06)
PROC: 4A133R1 Monitoring of Arterial Saturation, Peripheral, Percutaneous Approach (ICD-10-PCS; 2023-03-06)
PROC: 3E033XZ Introduction of Vasopressor into Peripheral Vein, Percutaneous Approach (ICD-10-PCS; 2023-03-06)
PROC: 3E03329 Introduction of Other Anti-infective into Peripheral Vein, Percutaneous Approach (ICD-10-PCS; 2023-03-06)
PROC: 30233J1 Transfusion of Nonautologous Serum Albumin into Peripheral Vein, Percutaneous Approach (ICD-10-PCS; 2023-03-31)
PROC: 5A1955Z Respiratory Ventilation, Greater than 96 Consecutive Hours (ICD-10-PCS; 2023-04-01)
PROC: 0BH17EZ Insertion of Endotracheal Airway into Trachea, Via Natural or Artificial Opening (ICD-10-PCS; 2023-04-01)
PROC: 0B110Z4 Bypass Trachea to Cutaneous, Open Approach (ICD-10-PCS; principal; 2023-04-05)
PROC: 0D968ZZ Drainage of Stomach, Via Natural or Artificial Opening Endoscopic (ICD-10-PCS; 2023-04-05)
PROC: 3E0G76Z Introduction of Nutritional Substance into Upper GI, Via Natural or Artificial Opening (ICD-10-PCS; 2023-04-05)
PROC: 30233N1 Transfusion of Nonautologous Red Blood Cells into Peripheral Vein, Percutaneous Approach (ICD-10-PCS; 2023-04-09)
DX: A41.9 Sepsis, unspecified organism (principal); I26.99 Other pulmonary embolism without acute cor pulmonale; J18.9 Pneumonia, unspecified organism; J96.21 Acute and chronic respiratory failure with hypoxia; E43 Unspecified severe protein-calorie malnutrition; C18.9 Malignant neoplasm of colon, unspecified; I31.4 Cardiac tamponade; I31.39 Other pericardial effusion (noninflammatory); C78.00 Secondary malignant neoplasm of unspecified lung; E87.1 Hypo-osmolality and hyponatremia; J98.11 Atelectasis; K62.5 Hemorrhage of anus and rectum; I48.92 Unspecified atrial flutter; N17.9 Acute kidney failure, unspecified; B19.10 Unspecified viral hepatitis B without hepatic coma; J98.19 Other pulmonary collapse; I50.9 Heart failure, unspecified; I95.9 Hypotension, unspecified; Z66 Do not resuscitate; Z51.5 Encounter for palliative care; R74.01 Elevation of levels of liver transaminase levels; E87.6 Hypokalemia; R62.7 Adult failure to thrive; I11.0 Hypertensive heart disease with heart failure; E80.6 Other disorders of bilirubin metabolism; R53.81 Other malaise; E87.5 Hyperkalemia; D64.9 Anemia, unspecified; I48.91 Unspecified atrial fibrillation; Z68.27 Body mass index [BMI] 27.0-27.9, adult; Z90.49 Acquired absence of other specified parts of digestive tract; Z92.21 Personal history of antineoplastic chemotherapy; Z11.52 Encounter for screening for COVID-19
CPT/HCPCS: 36415; 36416; 36430; 36600; 71045; 71275; 74230; 80053; 80202; 81001; 82088; 82274; 82533; 82570; 82805; 82945; 83605; 83615; 83690; 83735; 83880; 83930; 83935; 84100; 84134; 84145; 84157; 84300; 84443; 84484; 84550; 85025; 85046; 85049; 85060; 85300; 85362; 85379; 85384; 85610; 85730; 86140; 86704; 86705; 86850; 86900; 86901; 87040; 87340; 88305; 89051; 90935; 93005; 93010; 93306; 94002; 94003; 94640; 96374; 96375; C9113; G0257; J0153; J0171; J0282; J0360; J0612; J0613; J0665; J0690; J0692; J1100; J1642; J1650; J1720; J1815; J1940; J2001; J2060; J2250; J2270; J2272; J2405; J2704; J2997; J3010; J3370; J3475; J3480; J3490; J7050; J7070; J7120; J7131; J7620; J7999; P9016; P9047; Q9967